=== PATIENT | male | born 1955 | race Caucasian/White ===

== ENCOUNTER 2016-07-07 14:43 | Emergency (ER) | payer OTHER ==
[2016-07-07] MEDS ORDERED: MORPHINE 2 MG/ML 1ML SYRINGE As Ordered ONE (15:42)
[2016-07-07] MEDS ORDERED: ONDANSETRON 4MG/2ML VIAL (J2405) As Ordered ONE (15:48)
[2016-07-07 15:57] LABS: BASO # 0.1 K/mm3 (0.0-0.2); BASO % 0.9 % (0.0-1.0); EOS # 0.3 K/mm3 (0.0-0.50); EOS % 4.1 % (0.0-3.0); LARGE UNSTAINED CELL # 0.1 K/mm3 (0.0-0.4); LARGE UNSTAINED CELL % 1.3 % (0.0-4.0); LYMPH % 26.5 % (24.0-44.0); MEAN CORPUSCULAR HEMOGLOBIN 32.5 pg (27.0-33.0); MEAN CORPUSCULAR HGB CONC 34.6 g/dl (32.0-36.5); MEAN CORPUSCULAR VOLUME 93.8 fl (80.0-96.0); MONO # 0.6 K/mm3 (0.0-0.8); MONO % 7.5 % (0.0-5.0); NEUTROPHILS # 4.4 K/mm3 (1.8-7.7); NEUTROPHILS % 59.8 % (36.0-66.0); PLATELET COUNT, AUTOMATED 170 k/mm3 (150-450); WHITE BLOOD COUNT 7.4 K/mm3 (4.0-10.0)
[2016-07-07 16:18] LABS: ALBUMIN/GLOBULIN RATIO 1.14 (1.00-1.93); ALKALINE PHOSPHATASE 96 U/L (45-117); ALT/SGPT 61 U/L (12-78); ANION GAP 7 MEQ/L (8-16); AST/SGOT 27 U/L (15-37); BILIRUBIN,DIRECT 0.2 MG/DL (0.0-0.2); BILIRUBIN,TOTAL 0.7 MG/DL (0.2-1.0); BLOOD UREA NITROGEN 15 MG/DL (7-18); CALCIUM LEVEL 9.2 MG/DL (8.8-10.2); CARBON DIOXIDE LEVEL 26 MEQ/L (21-32); CHLORIDE LEVEL 108 MEQ/L (98-107); CREATININE FOR GFR 0.79 MG/DL (0.70-1.30); GLOMERULAR FILTRATION RATE > 60.0 (>49); GLUCOSE, FASTING 85 MG/DL (80-110); POTASSIUM SERUM 3.9 MEQ/L (3.5-5.1); SODIUM LEVEL 141 MEQ/L (136-145); TOTAL PROTEIN 7.5 GM/DL (6.4-8.2)
--- NOTE | 2016-07-07 16:26 | REP ---
CT abdomen pelvis without IV or bowel contrast: Comparisons 07/06/2010. The visualized lung peres are unremarkable. There there are multiple cysts in the left hepatic lobe, one in the medial segment measuring 3.5 cm (2.4 cm previously). There is a second bilobed cyst measuring 4.6 cm (previously 2.3 cm). A third in the lateral segment measuring 4.4 cm (previously 2.0 cm). The hepatic parenchyma is otherwise homogeneous and unremarkable. The gallbladder is unremarkable. Pancreas is normal size. There are numerous pancreatic calcifications, as previously, likely sequela of prior pancreatitis. There is no acute pancreatic inflammation. Spleen is normal size and homogeneous. The adrenals are unremarkable. There are bilateral renal cortical cysts, all approximately 1 cm in size with the exception of a large cyst at the lower pole of the left kidney measuring 7.6 cm (7.3 cm previously). No renal collecting system calculi are identified. There are vascular atheromatous calcifications in the right kidney. There are no ureteral calculi. There is no right hydroureter. There is mild left hydroureter, unchanged. 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 This is unchanged. There is an infrarenal abdominal aortic aneurysm measuring 4.1 x 3.4 cm. There is no periaortic or retroperitoneal hematoma. No bowel distension. Mesentery is unremarkable. Pelvis: The appendix has a normal appearance. There is no ascites or adenopathy. There are occasional diverticula in the sigmoid colon. No CT evidence of diverticulitis. Impression: Ureterocele in the bladder on the left. Mild left hydroureter. No left renal ureteral calculi. There is no hydronephrosis or hydroureter on the right. There are no right renal pelvis or ureteral calculi. There are right renal parenchymal calcifications, likely vascular atheroma. There are bilateral renal cortical cysts, largest in the lower pole left kidney. There are pancreatic calcifications, likely sequela of prior pancreatitis. There are hepatic cysts as described. There is an infrarenal abdominal aortic aneurysm measuring 4.1 x 3.4 cm. There is no periaortic or retroperitoneal hematoma. Signed by Justice Blanco MD 07/07/2016 04:18 P
--- NOTE | 2016-07-07 17:16 | REP ---
Clinical: Biliary colic. Technique: Real time ware scale ultrasound examination using curved array transducer. Findings: The gallbladder is normal without gallstones, wall thickening, or pericholecystic fluid. No biliary ductal dilatation is appreciated and the common bile duct measures 4.1 mm diameter. Pancreas demonstrates scattered calcifications consistent with chronic pancreatitis. Liver demonstrates fatty infiltration along with three left lobe cysts measuring 3.6 cm, 4.6 cm, and 3.3 cm maximal diameter each. Right kidney is normal in reniform shape without hydronephrosis and demonstrates few cysts measuring up to approximately 2 cm. Impression: 1. Normal gallbladder and biliary system. 2. Hepatic and renal cysts. 3. Evidence for chronic pancreatitis. Signed by Karlos Mullen MD 07/07/2016 05:08 P
--- NOTE | 2016-07-07 18:04 | EDDOCDS ---
Physician Documentation [facility] Name: Shiraz Clemente Age: 61 yrs Sex: Male : 1955 Arrival Date: 07/07/2016 Time: 14:43 Bed I4 / M4 Private MD: Jb Bhat P. Disposition: 07/07/16 17:37 Discharged to Home/Self Care. Impression: Other abdominal pain - RUQ, RIGHT FLANK PAIN, Abdominal aortic aneurysm, without rupture - INFRARENAL. - Condition is Stable. - Discharge Instructions: Abdominal Aortic Aneurysm, Abdominal Pain, Adult. - Medication Reconciliation, Local Pharmacy Hours form. - Follow up: Emergency Department; When: As needed; Reason: Worsening of conditions. Follow up: Jb Bhat; When: 2 - 3 days; Reason: Wound/Symptom Recheck, Recheck today's complaints, Continuance of care. - Problem is new. - Symptoms have improved. Historical: - Allergies: No known drug Allergies; - Home Meds: 1. Vitamin D Oral 2000 units daily (Last dose: 07/07/2016 06:00) 2. aspirin 81 mg Oral tab 1 tab once daily (Last dose: 07/07/2016 06:00) 3. amlodipine 10 mg Oral tab 1 tab nightly (Last dose: 07/06/2016) 4. atenolol 50 mg Oral tab 1 tab once daily (Last dose: 07/07/2016 06:00) 5. atorvastatin 40 mg oral tab 1 tab once daily (Last dose: 07/07/2016 06:00) 6. metformin 500 mg Oral tr24 1 tab twice a day (Last dose: 07/06/2016) 7. lisinopril 10 mg Oral tab 1 tab once daily (Last dose: 07/07/2016 06:00) - PMHx: Hypercholesterolemia; Hypertension; Diabetes - NIDDM: controlled; - PSHx: left knee surgery for ruptured patellar tendon; - Social history: Smoking status: Patient uses tobacco products, heavy tobacco smoker. No barriers to communication noted, The patient speaks fluent Italian. - : The pt / caregiver states he / she is not on anticoagulants. Home medication list is obtained from the patient. - Exposure Risk Screening:: None identified. Vital Signs: 07/07 14:45 BP 158 / 85; Pulse 61; Resp 18 S; Temp 97.9(O); Pulse Ox 99% on R/A; Weight 91.17 kg / gr2 201 lbs (R); Height 5 ft. 10 in. (177.80 cm) (R); Pain 7/10; 16:26 BP 129 / 69; Pulse 54; Resp 18; Pulse Ox 95% on R/A; Pain 4/10; jjr 17:38 BP 127 / 76; Pulse 54; Resp 18; Temp 98.0; Pulse Ox 95% ; Pain 8/10; jam1 14:45 Body Mass Index 28.84 (91.17 kg, 177.80 cm) gr2 MDM: 15:08 UA Ordered. EDMS 15:20 IV Saline Lock ordered. dt4 15:20 NS 0.9% 500 ml IV at bolus once ordered. dt4 15:20 morphine 2 mg IVP once ordered. dt4 15:21 CT ABD & PELVIS: No Contrast Ordered. EDMS 15:21 CBC with Diff Ordered. EDMS 15:21 Basic Metabolic Profile Ordered. EDMS 15:21 CRP Ordered. EDMS 15:47 LIPASE Ordered. EDMS 15:47 LIVER PROFILE Ordered. EDMS 15:48 Ondansetron 4 mg IVP once ordered. dt4 15:51 Financial registration complete. [email or web address] 16:00 [facility] Payment Agreement was scanned into [employer] and attached to record. [email or web address] 16:28 US Abd Limited Ordered. EDMS Administered Medications: 15:53 Drug: NS 0.9% 500 ml [sodium chloride 0.9 % intravenous solution] Route: IV; Rate: jjr bolus; Site: right antecubital; 16:46 Follow up: IV Status: Completed infusion; IV Intake: 500ml jjr 15:53 Drug: morphine 2 mg [morphine 2 mg/mL intravenous cartridge (1 mL)] Route: IVP; Site: jjr right antecubital; 16:26 Follow up: BP 129 / 69; Pulse 54 bpm; Resp 18 bpm; Pulse Ox 95% RA; Pain 4/10 Adult jjr 15:53 Drug: Ondansetron 4 mg [ondansetron HCl 2 mg/mL intravenous solution (2 mL)] Route: jjr IVP; Site: right antecubital; Signatures: Dispatcher [employer] Infuse EDMS Minna Mukherjee RN RN Patricia Corona RN Mallika Garcia, PACrys PACrys dt4 Lois Paul, Reg Reg [email or web address] The chart was reviewed and I authenticate all verbal orders and agree with the evaluation and treatment provided.Corrections: (The following items were deleted from the chart) 15:45 15:21 LIVER PROFILE+LAB ordered. EDMS EDMS 15:45 15:21 LIPASE+LAB ordered. EDMS EDMS Attachments: 16:00 [facility] Payment Agreement [email or web address] MTDD
--- NOTE | 2016-07-07 18:04 | EDDOCDS ---
Nurse's Notes [facility] Name: Shiraz Clemente Age: 61 yrs Sex: Male : 1955 Arrival Date: 07/07/2016 Time: 14:43 Bed I4 / M4 Private MD: Jb Bhat P. Diagnosis: Other abdominal pain-RUQ, RIGHT FLANK PAIN;Abdominal aortic aneurysm, without rupture-INFRARENAL Presentation: 07/07 14:55 Presenting complaint: Patient states: right flank pain radiating to abdomen since [facility] yesterday, Sent from Dr Bhat's office. Acute neurological deficits are not present. Mechanism of Injury: No Mechanism of Injury. Adult Sepsis Screening: The patient does not have new or worsening altered mentation. Patient's respiratory rate is less than 22. Systolic blood pressure is greater than 100. Patient has a qSOFA score of 0- Negative Sepsis Screen. Suicide/Homicide risk assessment- the patient denies having any suicidal and/or homicidal ideations and does not present with any other emotional, behavioral or mental health complaints. Status: Patient is not a civil service worker or dependent. Transition of care: patient was received from a primary care office; Dr Bhta's office. 14:55 Acuity: DELFIN Level 3 [facility] 14:55 Method Of Arrival: Walkin/Carried/Asstd [facility] Triage Assessment: 15:01 General: Appears in no apparent distress, well nourished, well groomed, Behavior is j appropriate for age, pleasant. Pain: Location: right flank Pain currently is 5 out of 10 on a pain scale. Pain radiates to right lower quadrant. Pt Declines HIV testing. Neurological: Level of Consciousness is awake, alert, Oriented to person, place, time. Respiratory: Airway is patent Respiratory effort is even, unlabored, Respiratory pattern is regular, symmetrical. GI: Denies nausea, vomiting. : Reports pain in right flank(s) Pain is 5 out of 10 on a pain scale. Derm: Skin is pink, warm & dry. Musculoskeletal: Reports pain in right flank Pain is 5 out of 10 on a pain scale. Historical: - Allergies: No known drug Allergies; - Home Meds: 1. Vitamin D Oral 2000 units daily (Last dose: 07/07/2016 06:00) 2. aspirin 81 mg Oral tab 1 tab once daily (Last dose: 07/07/2016 06:00) 3. amlodipine 10 mg Oral tab 1 tab nightly (Last dose: 07/06/2016) 4. atenolol 50 mg Oral tab 1 tab once daily (Last dose: 07/07/2016 06:00) 5. atorvastatin 40 mg oral tab 1 tab once daily (Last dose: 07/07/2016 06:00) 6. metformin 500 mg Oral tr24 1 tab twice a day (Last dose: 07/06/2016) 7. lisinopril 10 mg Oral tab 1 tab once daily (Last dose: 07/07/2016 06:00) - PMHx: Hypercholesterolemia; Hypertension; Diabetes - NIDDM: controlled; - PSHx: left knee surgery for ruptured patellar tendon; - Social history: Smoking status: Patient uses tobacco products, heavy tobacco smoker. No barriers to communication noted, The patient speaks fluent [place]. - : The pt / caregiver states he / she is not on anticoagulants. Home medication list is obtained from the patient. - Exposure Risk Screening:: None identified. Screenin:35 Screening information is obtained from the patient. Primary language is [place]. Fall jam1 risk: No risks identified. Assistance ADL's: requires no assistance with activities of daily living. Abuse/DV Screen: The patient / caregiver reports he/she is: not in a situation that causes fear, pain or injury. Nutritional screening: No deficits noted. Exposure Risk Screening: None identified. Advance Directives: Currently, there is a health care proxy, lana block friend. There is no active DNR order. There is no living will. There is an active Power of Continuous Improvement Consultant, geovanna block friend. Advance directive information has not previously been placed in an [facility] medical record. Further advance directive information is declined. home support is adequate. Assessment: 15:54 General: Appears in no apparent distress, well nourished, well groomed, Behavior is jjr appropriate for age. Pain: Location: posterior aspect of right lateral abdomen Pain radiates to right low back, right lower quadrant and groin Pain began 1 day ago Aggravated by lying supine and activity. Neurological: No deficits noted. Respiratory: No deficits noted. GI: Abdomen is non- distended Bowel sounds present X 4 quads. Abd is soft X 4 quads Abd is tender to palpation in posterior aspect of right lateral abdomen and right lower quadrant. : Denies pain with urination urinary frequency, urgency. Derm: No deficits noted. 16:27 General: Appears in no apparent distress, reports less pain with movement than jjr experienced earlier, pain remains the worst to right lateral abdomen. 18:02 General: Appears in no apparent distress, continues to report pain to right lateral jjr abdomen radiating to right low back and RLQ. Vital Signs: 14:45 BP 158 / 85; Pulse 61; Resp 18 S; Temp 97.9(O); Pulse Ox 99% on R/A; Weight 91.17 kg gr2 (R); Height 5 ft. 10 in. (177.80 cm) (R); Pain 7/10; 16:26 BP 129 / 69; Pulse 54; Resp 18; Pulse Ox 95% on R/A; Pain 4/10; jjr 17:38 BP 127 / 76; Pulse 54; Resp 18; Temp 98.0; Pulse Ox 95% ; Pain 8/10; jam1 14:45 Body Mass Index 28.84 (91.17 kg, 177.80 cm) gr2 Vitals: 14:45 Log In Time: July 07, 2016 at 14:45. gr2 ED Course: 14:45 Patient visited by Bg Feliciano. gr2 14:45 Jb Bhat is Private Physician. gr2 14:45 Patient moved to Waiting gr2 14:46 Patient visited by Bg Feliciano. gr2 14:46 Patient moved to Pre RCE gr2 14:57 Triage Initiated kp 15:03 Patient moved to Triage 3 [facility] 15:04 Mallika Chaudhari PA-C [facility]. dt4 15:04 Carroll Smith MD is Attending Physician. dt4 15:05 Patient visited by Mallika Chaudhari PA-C. dt4 15:21 Patient moved to I4 / M4 jr 15:35 Pt greeted and oriented to ED. Patient advised of names of staff involved in care, jam1 location of call rivera, wait times and NPO status. Patient has correct armband on for positive identification. Placed in gown. Bed in low position. Call light in reach. Side rails up X 1. Adult w/ patient. Door closed. 15:55 Patient visited by Patricia Feliciano RN. jjr 15:55 The patient / caregiver is instructed regarding the plan of care and ED course. jjr 15:55 Inserted saline lock: 20 gauge in right antecubital area and blood collected. by Edel stephen RN. 16:00 [facility] Payment Agreement was scanned into [employer] and attached to record. ks16 16:28 Patient visited by Patricia Feliciano RN. jjr 16:34 Patient visited by Mallika Chaudhari PA-C. dt4 16:35 Patient moved to Ultrasound hgl 16:47 CT ABD & PELVIS: No Contrast Returned. EDMS 16:52 Patient moved to I4 / M4 hgl 17:32 Patient visited by Alma Tyler RN. mk4 17:35 Jb Bhat is Referral Physician. dt4 17:45 US Abd Limited Returned. EDMS 18:02 Discontinued lock intact, bleeding controlled, pressure dressing applied, No jjr redness/swelling at site. No procedures done that require assistance. Administered Medications: 15:53 Drug: NS 0.9% 500 ml [sodium chloride 0.9 % intravenous solution] Route: IV; Rate: jjr bolus; Site: right antecubital; 16:46 Follow up: IV Status: Completed infusion; IV Intake: 500ml jjr 15:53 Drug: morphine 2 mg [morphine 2 mg/mL intravenous cartridge (1 mL)] Route: IVP; Site: jjr right antecubital; 16:26 Follow up: BP 129 / 69; Pulse 54 bpm; Resp 18 bpm; Pulse Ox 95% RA; Pain 4/10 Adult jjr 15:53 Drug: Ondansetron 4 mg [ondansetron HCl 2 mg/mL intravenous solution (2 mL)] Route: jjr IVP; Site: right antecubital; Intake: 16:46 IV: 500.00ml; Total: 500.00ml. jjr Order Results: Lab Order: UA; SPEC'M 07/07/16 15:12 Test: APPEARANCE, URINE; Value: CLEAR; Range: CLEAR; Status: F Test: COLOR, URINE; Value: STRAW; Range: YELLOW; Status: F Test: PH,URINE; Value: 5.0; Range: 5.0-9.0; Units: UNITS; Status: F Test: SPECIFIC GRAVITY URINE AUTO; Value: 1.006; Range: 1.002-1.035; Status: F Test: PROTEIN, URINE AUTO; Value: NEGATIVE; Range: NEGATIVE; Units: mg/dL; Status: F Test: GLUCOSE, URINE (UA) AUTO; Value: NEGATIVE; Range: NEGATIVE; Units: mg/dL; Status: F Test: KETONE, URINE AUTO; Value: NEGATIVE; Range: NEGATIVE; Units: mg/dL; Status: F Test: UROBILINOGEN, URINE AUTO; Value: 0.2; Range: 0.0-2.0; Units: mg/dL; Status: F Test: BILIRUBIN, URINE AUTO; Value: NEGATIVE; Range: NEGATIVE; Status: F Test: NITRITE, URINE AUTO; Value: NEGATIVE; Range: NEGATIVE; Status: F Test: LEUKOCYTE ESTERASE, URINE AUTO; Value: NEGATIVE; Range: NEGATIVE; Status: F Test: BLOOD, URINE BLOOD; Value: NEGATIVE; Range: NEGATIVE; Status: F Test: WBC, URINE AUTO; Value: 0; Range: 0-3; Units: /HPF; Status: F Test: RBC, URINE AUTO; Value: 1; Range: 0-3; Units: /HPF; Status: F Test: BACTERIA, URINE AUTO; Value: NEGATIVE; Range: NEGATIVE; Status: F Test: SQUAMOUS EPITHELIAL CELL UR AU; Value: 0; Range: 0-6; Units: /HPF; Status: F Test: MUCUS, URINE; Value: SMALL; Range: NEGATIVE; Status: F Test: HYALINE CAST, URINE AUTO; Value: 0; Range: 0-1; Units: /LPF; Status: F Lab Order: CBC with Diff; SPEC'M 07/07/16 15:46 Test: WHITE BLOOD COUNT; Value: 7.4; Range: 4.0-10.0; Units: K/mm3; Status: F Test: RED BLOOD COUNT; Value: 5.47; Range: 4.30-6.10; Units: M/mm3; Status: F Test: HEMOGLOBIN; Value: 17.8; Range: 14.0-18.0; Units: g/dl; Status: F Test: HEMATOCRIT; Value: 51.3; Range: 42.0-52.0; Units: %; Status: F Test: MEAN CORPUSCULAR VOLUME; Value: 93.8; Range: 80.0-96.0; Units: fl; Status: F Test: MEAN CORPUSCULAR HEMOGLOBIN; Value: 32.5; Range: 27.0-33.0; Units: pg; Status: F Test: MEAN CORPUSCULAR HGB CONC; Value: 34.6; Range: 32.0-36.5; Units: g/dl; Status: F Test: RED CELL DISTRIBUTION WIDTH; Value: 12.0; Range: 11.5-14.5; Units: %; Status: F Test: PLATELET COUNT, AUTOMATED; Value: 170; Range: 150-450; Units: k/mm3; Status: F Test: NEUTROPHILS %; Value: 59.8; Range: 36.0-66.0; Units: %; Status: F Test: LYMPH %; Value: 26.5; Range: 24.0-44.0; Units: %; Status: F Test: MONO %; Value: 7.5; Range: 0.0-5.0; Abnormal: Above high normal; Units: %; Status: F Test: EOS %; Value: 4.1; Range: 0.0-3.0; Abnormal: Above high normal; Units: %; Status: F Test: BASO %; Value: 0.9; Range: 0.0-1.0; Units: %; Status: F Test: LARGE UNSTAINED CELL %; Value: 1.3; Range: 0.0-4.0; Units: %; Status: F Test: NEUTROPHILS #; Value: 4.4; Range: 1.8-7.7; Units: K/mm3; Status: F Test: LYMPH #; Value: 2.0; Range: 1.5-4.5; Units: K/mm3; Status: F Test: MONO #; Value: 0.6; Range: 0.0-0.8; Units: K/mm3; Status: F Test: EOS #; Value: 0.3; Range: 0.0-0.50; Units: K/mm3; Status: F Test: BASO #; Value: 0.1; Range: 0.0-0.2; Units: K/mm3; Status: F Test: LARGE UNSTAINED CELL #; Value: 0.1; Range: 0.0-0.4; Units: K/mm3; Status: F Lab Order: Basic Metabolic Profile; [facility] 07/07/16 15:46 Test: GLUCOSE, FASTING; Value: 85; Range: 80-110; Units: MG/DL; Status: F Test: BLOOD UREA NITROGEN; Value: 15; Range: 7-18; Units: MG/DL; Status: F Test: CREATININE FOR GFR; Value: 0.79; Range: 0.70-1.30; Units: MG/DL; Status: F Test: GLOMERULAR FILTRATION RATE; Value: > 60.0; Range: >49; Status: F Test: SODIUM LEVEL; Value: 141; Range: 136-145; Units: MEQ/L; Status: F Test: POTASSIUM SERUM; Value: 3.9; Range: 3.5-5.1; Units: MEQ/L; Status: F Test: CHLORIDE LEVEL; Value: 108; Range: 98-107; Abnormal: Above high normal; Units: MEQ/L; Status: F Test: CARBON DIOXIDE LEVEL; Value: 26; Range: 21-32; Units: MEQ/L; Status: F Test: ANION GAP; Value: 7; Range: 8-16; Abnormal: Below low normal; Units: MEQ/L; Status: F Test: CALCIUM LEVEL; Value: 9.2; Range: 8.8-10.2; Units: MG/DL; Status: F Test Note: ; Units are mL/min/1.73 m2 Chronic Kidney Disease Staging per NKF: Stage I & II GFR >=60 Normal to Mildly Decreased Stage III GFR 30-59 Moderately Decreased Stage IV GFR 15-29 Severely Decreased Stage V GFR <15 Very Little GFR Left ESRD GFR <15 on [employer] SUPERVISOR Lab Order: CRP; [facility] 07/07/16 15:46 Test: C REACTIVE PROTEIN QUANTITATIV; Value: 0.42; Range: 0.00-0.30; Abnormal: Above high normal; Units: MG/DL; Status: F Lab Order: LIPASE; [facility] 07/07/16 15:46 Test: LIPASE; Value: 283; Range: 73-393; Units: U/L; Status: F Lab Order: LIVER PROFILE; [facility] 07/07/16 15:46 Test: AST/SGOT; Value: 27; Range: 15-37; Units: U/L; Status: F Test: ALT/SGPT; Value: 61; Range: 12-78; Units: U/L; Status: F Test: ALKALINE PHOSPHATASE; Value: 96; Range: 45-117; Units: U/L; Status: F Test: BILIRUBIN,TOTAL; Value: 0.7; Range: 0.2-1.0; Units: MG/DL; Status: F Test: BILIRUBIN,DIRECT; Value: 0.2; Range: 0.0-0.2; Units: MG/DL; Status: F Test: TOTAL PROTEIN; Value: 7.5; Range: 6.4-8.2; Units: GM/DL; Status: F Test: ALBUMIN; Value: 4.0; Range: 3.2-5.2; Units: GM/DL; Status: F Test: ALBUMIN/GLOBULIN RATIO; Value: 1.14; Range: 1.00-1.93; Status: F Radiology Order: CT ABD & PELVIS: No Contrast Test: CT ABD & PELVIS: No Contrast REASON FOR EXAMINATION: RIGHT FLANK PAIN; CT abdomen pelvis without IV or bowel contrast:; ; Comparisons 07/06/2010.; ; The visualized lung peres are unremarkable.; ; There there are multiple cysts in the left hepatic lobe, one in the medial; segment measuring 3.5 cm (2.4 cm previously). There is a second bilobed cyst; measuring 4.6 cm (previously 2.3 cm). A third in the lateral segment measuring; 4.4 cm (previously 2.0 cm).; ; The hepatic parenchyma is otherwise homogeneous and unremarkable.; ; The gallbladder is unremarkable.; ; Pancreas is normal size. There are numerous pancreatic calcifications, as; previously, likely sequela of prior pancreatitis. There is no acute pancreatic; inflammation.; ; Spleen is normal size and homogeneous.; ; The adrenals are unremarkable.; ; There are bilateral renal cortical cysts, all approximately 1 cm in size with the; exception of a large cyst at the lower pole of the left kidney measuring 7.6 cm; (7.3 cm previously).; ; No renal collecting system calculi are identified. There are vascular; atheromatous calcifications in the right kidney.; ; There are no ureteral calculi.; ; There is no right hydroureter. There is mild left hydroureter, unchanged. 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 This is unchanged.; ; There is an infrarenal abdominal aortic aneurysm measuring 4.1 x 3.4 cm. There; is no periaortic or retroperitoneal hematoma.; ; No bowel distension. Mesentery is unremarkable.; ; ; ; Pelvis:; ; The appendix has a normal appearance. There is no ascites or adenopathy. There; are occasional diverticula in the sigmoid colon. No CT evidence of; diverticulitis.; ; Impression:; ; Ureterocele in the bladder on the left. Mild left hydroureter. No left renal; ureteral calculi.; ; There is no hydronephrosis or hydroureter on the right. There are no right renal; pelvis or ureteral calculi. There are right renal parenchymal calcifications,; likely vascular atheroma.; ; There are bilateral renal cortical cysts, largest in the lower pole left kidney.; ; There are pancreatic calcifications, likely sequela of prior pancreatitis.; ; There are hepatic cysts as described.; ; There is an infrarenal abdominal aortic aneurysm measuring 4.1 x 3.4 cm. There; is no periaortic or retroperitoneal hematoma.; ; ; Signed by; Justice Blanco MD 07/07/2016 04:18 P; Radiology Order: US Abd Limited Test: US Abd Limited REASON FOR EXAMINATION: Biliary Colic; Clinical: Biliary colic.; ; Technique: Real time ware scale ultrasound examination using curved array; transducer.; ; Findings:; The gallbladder is normal without gallstones, wall thickening, or pericholecystic; fluid. No biliary ductal dilatation is appreciated and the common bile duct; measures 4.1 mm diameter. Pancreas demonstrates scattered calcifications; consistent with chronic pancreatitis. Liver demonstrates fatty infiltration; along with three left lobe cysts measuring 3.6 cm, 4.6 cm, and 3.3 cm maximal; diameter each. Right kidney is normal in reniform shape without hydronephrosis; and demonstrates few cysts measuring up to approximately 2 cm.; ; Impression:; 1. Normal gallbladder and biliary system.; 2. Hepatic and renal cysts.; 3. Evidence for chronic pancreatitis.; ; ; Signed by; Karlos Mullen MD 07/07/2016 05:08 P; Outcome: 17:37 Discharge ordered by Provider. dt4 18:03 Discharge Assessment: patient administered narcotics - yes. Pt provided with safe jjr discharge. The following High Risk Discharge criteria are identified: None. Discharged to home ambulatory, with significant other. Condition: stable. Discharge instructions given to patient, Instructed on discharge instructions, follow up and referral plans. Demonstrated understanding of instructions. CT Study completed. Ultrasound Study completed. Property sent home with patient. 18:03 Patient left the ED. zafar Signatures: Dispatcher [employer] EDMS Minna Mukherjee, RN RN Eliana Cleaning PCA JOB ORDER CLERK jam1 Patricia Feliciano RN ANJELICA stephen Ly, Yeison l Bg Feliciano gr2 Alma Tyler RN RN mk4 Mallika Chaudhari, JHONNY PACrys dt4 Lois Paul, Reg Reg ks16 MTDD
--- NOTE | 2016-07-09 19:04 | EDDOCDS ---
Physician Documentation [facility] Name: Shiraz Clemente Age: 61 yrs Sex: Male : 1955 Arrival Date: 07/07/2016 Time: 14:43 Bed I4 / M4 Private MD: Jb Bhat P. Disposition: 07/07/16 17:37 Discharged to Home/Self Care. Impression: Other abdominal pain - RUQ, RIGHT FLANK PAIN, Abdominal aortic aneurysm, without rupture - INFRARENAL. - Condition is Stable. - Discharge Instructions: Abdominal Aortic Aneurysm, Abdominal Pain, Adult. - Medication Reconciliation, Local Pharmacy Hours form. - Follow up: Emergency Department; When: As needed; Reason: Worsening of conditions. Follow up: Jb Bhat; When: 2 - 3 days; Reason: Wound/Symptom Recheck, Recheck today's complaints, Continuance of care. - Problem is new. - Symptoms have improved. Historical: - Allergies: No known drug Allergies; - Home Meds: 1. Vitamin D Oral 2000 units daily (Last dose: 07/07/2016 06:00) 2. aspirin 81 mg Oral tab 1 tab once daily (Last dose: 07/07/2016 06:00) 3. amlodipine 10 mg Oral tab 1 tab nightly (Last dose: 07/06/2016) 4. atenolol 50 mg Oral tab 1 tab once daily (Last dose: 07/07/2016 06:00) 5. atorvastatin 40 mg oral tab 1 tab once daily (Last dose: 07/07/2016 06:00) 6. metformin 500 mg Oral tr24 1 tab twice a day (Last dose: 07/06/2016) 7. lisinopril 10 mg Oral tab 1 tab once daily (Last dose: 07/07/2016 06:00) - PMHx: Hypercholesterolemia; Hypertension; Diabetes - NIDDM: controlled; - PSHx: left knee surgery for ruptured patellar tendon; - Social history: Smoking status: Patient uses tobacco products, heavy tobacco smoker. No barriers to communication noted, The patient speaks fluent Luxembourgish. - : The pt / caregiver states he / she is not on anticoagulants. Home medication list is obtained from the patient. - Exposure Risk Screening:: None identified. Vital Signs: 07/07 14:45 BP 158 / 85; Pulse 61; Resp 18 S; Temp 97.9(O); Pulse Ox 99% on R/A; Weight 91.17 kg / gr2 201 lbs (R); Height 5 ft. 10 in. (177.80 cm) (R); Pain 7/10; 16:26 BP 129 / 69; Pulse 54; Resp 18; Pulse Ox 95% on R/A; Pain 4/10; jjr 17:38 BP 127 / 76; Pulse 54; Resp 18; Temp 98.0; Pulse Ox 95% ; Pain 8/10; jam1 14:45 Body Mass Index 28.84 (91.17 kg, 177.80 cm) gr2 MDM: 15:08 UA Ordered. EDMS 15:20 IV Saline Lock ordered. dt4 15:20 NS 0.9% 500 ml IV at bolus once ordered. dt4 15:20 morphine 2 mg IVP once ordered. dt4 15:21 CT ABD & PELVIS: No Contrast Ordered. EDMS 15:21 CBC with Diff Ordered. EDMS 15:21 Basic Metabolic Profile Ordered. EDMS 15:21 CRP Ordered. EDMS 15:47 LIPASE Ordered. EDMS 15:47 LIVER PROFILE Ordered. EDMS 15:48 Ondansetron 4 mg IVP once ordered. dt4 15:51 Financial registration complete. [email or web address] 16:00 [facility] Payment Agreement was scanned into [employer] and attached to record. [email or web address] 16:28 [place] Abd Limited Ordered. EDMS 07/08 18:52 T-Sheet-- Draft Copy was scanned into [employer] and attached to record. klr Administered Medications: 07/07 15:53 Drug: NS 0.9% 500 ml [sodium chloride 0.9 % intravenous solution] Route: IV; Rate: jjr bolus; Site: right antecubital; 16:46 Follow up: IV Status: Completed infusion; IV Intake: 500ml jjr 15:53 Drug: morphine 2 mg [morphine 2 mg/mL intravenous cartridge (1 mL)] Route: IVP; Site: jjr right antecubital; 16:26 Follow up: BP 129 / 69; Pulse 54 bpm; Resp 18 bpm; Pulse Ox 95% RA; Pain 4/10 Adult jjr 15:53 Drug: Ondansetron 4 mg [ondansetron HCl 2 mg/mL intravenous solution (2 mL)] Route: jjr IVP; Site: right antecubital; Signatures: Dispatcher [employer] EDMinna Pena RN RN Patricia Corona RN RN Mallika Tinsley PA-C PA-C dt4 Lois Paul, Reg Reg ks16 Julita Lewis The chart was reviewed and I authenticate all verbal orders and agree with the evaluation and treatment provided.Corrections: (The following items were deleted from the chart) 15:45 15:21 LIVER PROFILE+LAB ordered. EDMS EDMS 15:45 15:21 LIPASE+LAB ordered. EDMS EDMS Attachments: 16:00 [facility] Payment Agreement [email or web address] 07/08 18:52 T-Sheet-- Draft Copy wisam Chart Complete MTDD
--- NOTE | 2016-07-09 19:04 | EDDOCDS ---
Physician Documentation [facility] Name: Shiraz Clemente Age: 61 yrs Sex: Male : 1955 Arrival Date: 07/07/2016 Time: 14:43 Bed I4 / M4 Private MD: Jb Bhat P. Disposition: 07/07/16 17:37 Discharged to Home/Self Care. Impression: Other abdominal pain - RUQ, RIGHT FLANK PAIN, Abdominal aortic aneurysm, without rupture - INFRARENAL. - Condition is Stable. - Discharge Instructions: Abdominal Aortic Aneurysm, Abdominal Pain, Adult. - Medication Reconciliation, Local Pharmacy Hours form. - Follow up: Emergency Department; When: As needed; Reason: Worsening of conditions. Follow up: Jb Bhat; When: 2 - 3 days; Reason: Wound/Symptom Recheck, Recheck today's complaints, Continuance of care. - Problem is new. - Symptoms have improved. Historical: - Allergies: No known drug Allergies; - Home Meds: 1. Vitamin D Oral 2000 units daily (Last dose: 07/07/2016 06:00) 2. aspirin 81 mg Oral tab 1 tab once daily (Last dose: 07/07/2016 06:00) 3. amlodipine 10 mg Oral tab 1 tab nightly (Last dose: 07/06/2016) 4. atenolol 50 mg Oral tab 1 tab once daily (Last dose: 07/07/2016 06:00) 5. atorvastatin 40 mg oral tab 1 tab once daily (Last dose: 07/07/2016 06:00) 6. metformin 500 mg Oral tr24 1 tab twice a day (Last dose: 07/06/2016) 7. lisinopril 10 mg Oral tab 1 tab once daily (Last dose: 07/07/2016 06:00) - PMHx: Hypercholesterolemia; Hypertension; Diabetes - NIDDM: controlled; - PSHx: left knee surgery for ruptured patellar tendon; - Social history: Smoking status: Patient uses tobacco products, heavy tobacco smoker. No barriers to communication noted, The patient speaks fluent Irish. - : The pt / caregiver states he / she is not on anticoagulants. Home medication list is obtained from the patient. - Exposure Risk Screening:: None identified. Vital Signs: 07/07 14:45 BP 158 / 85; Pulse 61; Resp 18 S; Temp 97.9(O); Pulse Ox 99% on R/A; Weight 91.17 kg / gr2 201 lbs (R); Height 5 ft. 10 in. (177.80 cm) (R); Pain 7/10; 16:26 BP 129 / 69; Pulse 54; Resp 18; Pulse Ox 95% on R/A; Pain 4/10; jjr 17:38 BP 127 / 76; Pulse 54; Resp 18; Temp 98.0; Pulse Ox 95% ; Pain 8/10; jam1 14:45 Body Mass Index 28.84 (91.17 kg, 177.80 cm) gr2 MDM: 15:08 UA Ordered. EDMS 15:20 IV Saline Lock ordered. dt4 15:20 NS 0.9% 500 ml IV at bolus once ordered. dt4 15:20 morphine 2 mg IVP once ordered. dt4 15:21 CT ABD & PELVIS: No Contrast Ordered. EDMS 15:21 CBC with Diff Ordered. EDMS 15:21 Basic Metabolic Profile Ordered. EDMS 15:21 CRP Ordered. EDMS 15:47 LIPASE Ordered. EDMS 15:47 LIVER PROFILE Ordered. EDMS 15:48 Ondansetron 4 mg IVP once ordered. dt4 15:51 Financial registration complete. [email or web address] 16:00 [facility] Payment Agreement was scanned into [employer] and attached to record. [email or web address] 16:28 [place] Abd Limited Ordered. EDMS 07/08 18:52 T-Sheet-- Draft Copy was scanned into [employer] and attached to record. klr Administered Medications: 07/07 15:53 Drug: NS 0.9% 500 ml [sodium chloride 0.9 % intravenous solution] Route: IV; Rate: jjr bolus; Site: right antecubital; 16:46 Follow up: IV Status: Completed infusion; IV Intake: 500ml jjr 15:53 Drug: morphine 2 mg [morphine 2 mg/mL intravenous cartridge (1 mL)] Route: IVP; Site: jjr right antecubital; 16:26 Follow up: BP 129 / 69; Pulse 54 bpm; Resp 18 bpm; Pulse Ox 95% RA; Pain 4/10 Adult jjr 15:53 Drug: Ondansetron 4 mg [ondansetron HCl 2 mg/mL intravenous solution (2 mL)] Route: jjr IVP; Site: right antecubital; Signatures: Dispatcher [employer] EDMinna Pena RN RN Patricia Corona RN RN Mallika Tinsley PA-C PA-C dt4 Lois Paul, Reg Reg ks16 Julita Lewis The chart was reviewed and I authenticate all verbal orders and agree with the evaluation and treatment provided.Corrections: (The following items were deleted from the chart) 15:45 15:21 LIVER PROFILE+LAB ordered. EDMS EDMS 15:45 15:21 LIPASE+LAB ordered. EDMS EDMS Attachments: 16:00 [facility] Payment Agreement [email or web address] 07/08 18:52 T-Sheet-- Draft Copy wisam Chart Complete MTDD
--- NOTE | 2016-07-09 19:05 | EDDOCDS ---
Nurse's Notes [facility] Name: Shiraz Clemente Age: 61 yrs Sex: Male : 1955 Arrival Date: 07/07/2016 Time: 14:43 Bed I4 / M4 Private MD: Jb Bhat P. Diagnosis: Other abdominal pain-RUQ, RIGHT FLANK PAIN;Abdominal aortic aneurysm, without rupture-INFRARENAL Presentation: 07/07 14:55 Presenting complaint: Patient states: right flank pain radiating to [facility] Sent from Dr Bhat's office. Acute neurological deficits are not present. Mechanism of Injury: No Mechanism of Injury. Adult Sepsis Screening: The patient does not have new or worsening altered mentation. Patient's respiratory rate is less than 22. Systolic blood pressure is greater than 100. Patient has a qSOFA score of 0- Negative Sepsis Screen. Suicide/Homicide risk assessment- the patient denies having any suicidal and/or homicidal ideations and does not present with any other emotional, behavioral or mental health complaints. Status: Patient is not a supervisor special services or dependent. Transition of care: patient was received from a primary care office; Dr Bhat's office. 14:55 Acuity: [facility] 14:55 Method Of Arrival: Walkin/Carried[facility] Triage Assessment: 15:01 General: Appears in no apparent distress, well nourished, well groomed, Behavior is j appropriate for age, pleasant. Pain: Location: right flank Pain currently is 5 out of 10 on a pain scale. Pain radiates to right lower quadrant. Pt Declines HIV testing. Neurological: Level of Consciousness is awake, alert, Oriented to person, place, time. Respiratory: Airway is patent Respiratory effort is even, unlabored, Respiratory pattern is regular, symmetrical. GI: Denies nausea, vomiting. : Reports pain in right flank(s) Pain is 5 out of 10 on a pain scale. Derm: Skin is pink, warm & dry. Musculoskeletal: Reports pain in right flank Pain is 5 out of 10 on a pain scale. Historical: - Allergies: No known drug Allergies; - Home Meds: 1. Vitamin D Oral 2000 units daily (Last dose: 07/07/2016 06:00) 2. aspirin 81 mg Oral tab 1 tab once daily (Last dose: 07/07/2016 06:00) 3. amlodipine 10 mg Oral tab 1 tab nightly (Last dose: 07/06/2016) 4. atenolol 50 mg Oral tab 1 tab once daily (Last dose: 07/07/2016 06:00) 5. atorvastatin 40 mg oral tab 1 tab once daily (Last dose: 07/07/2016 06:00) 6. metformin 500 mg Oral tr24 1 tab twice a day (Last dose: 07/06/2016) 7. lisinopril 10 mg Oral tab 1 tab once daily (Last dose: 07/07/2016 06:00) - PMHx: Hypercholesterolemia; Hypertension; Diabetes - NIDDM: controlled; - PSHx: left knee surgery for ruptured patellar tendon; - Social history: Smoking status: Patient uses tobacco products, heavy tobacco smoker. No barriers to communication noted, The patient speaks fluent Mongolian. - : The pt / caregiver states he / she is not on anticoagulants. Home medication list is obtained from the patient. - Exposure Risk Screening:: None identified. Screenin:35 Screening information is obtained from the patient. Primary language is Mongolian. Fall jam1 risk: No risks identified. Assistance ADL's: requires no assistance with activities of daily living. Abuse/DV Screen: The patient / caregiver reports he/she is: not in a situation that causes fear, pain or injury. Nutritional screening: No deficits noted. Exposure Risk Screening: None identified. Advance Directives: Currently, there is a health care proxy, lana block friend. There is no active DNR order. There is no living will. There is an active Power of Oil Filters Inspector, geovanna block friend. Advance directive information has not previously been placed in an [facility] medical record. Further advance directive information is declined. home support is adequate. Assessment: 15:54 General: Appears in no apparent distress, well nourished, well groomed, Behavior is jjr appropriate for age. Pain: Location: posterior aspect of right lateral abdomen Pain radiates to right low back, right lower quadrant and groin Pain began 1 day ago Aggravated by lying supine and activity. Neurological: No deficits noted. Respiratory: No deficits noted. GI: Abdomen is non- distended Bowel sounds present X 4 quads. Abd is soft X 4 quads Abd is tender to palpation in posterior aspect of right lateral abdomen and right lower quadrant. : Denies pain with urination urinary frequency, urgency. Derm: No deficits noted. 16:27 General: Appears in no apparent distress, reports less pain with movement than jjr experienced earlier, pain remains the worst to right lateral abdomen. 18:02 General: Appears in no apparent distress, continues to report pain to right lateral jjr abdomen radiating to right low back and RLQ. Vital Signs: 14:45 BP 158 / 85; Pulse 61; Resp 18 S; Temp 97.9(O); Pulse Ox 99% on R/A; Weight 91.17 kg gr2 (R); Height 5 ft. 10 in. (177.80 cm) (R); Pain 7/10; 16:26 BP 129 / 69; Pulse 54; Resp 18; Pulse Ox 95% on R/A; Pain 4/10; jjr 17:38 BP 127 / 76; Pulse 54; Resp 18; Temp 98.0; Pulse Ox 95% ; Pain 8/10; jam1 14:45 Body Mass Index 28.84 (91.17 kg, 177.80 cm) gr2 Vitals: 14:45 Log In Time: July 07, 2016 at 14:45. gr2 ED Course: 14:45 Patient visited by Bg Feliciano. gr2 14:45 Jb Bhat is Private Physician. gr2 14:45 Patient moved to Waiting gr2 14:46 Patient visited by Bg Feliciano. gr2 14:46 Patient moved to Pre RCE gr2 14:57 Triage Initiated kp 15:03 Patient moved to [facility] 15:04 [facility] dt4 15:04 Carroll Smith MD is Attending Physician. dt4 15:05 Patient visited by Mallika Chaudhari PA-C. dt4 15:21 Patient moved to I4 / M4 jr 15:35 Pt greeted and oriented to ED. Patient advised of names of staff involved in care, jam1 location of call rivera, wait times and NPO status. Patient has correct armband on for positive identification. Placed in gown. Bed in low position. Call light in reach. Side rails up X 1. Adult w/ patient. Door closed. 15:55 Patient visited by Patricia Feliciano RN. jjr 15:55 The patient / caregiver is instructed regarding the plan of care and ED course. jjr 15:55 Inserted saline lock: 20 gauge in right antecubital area and blood collected. by Edel stephen RN. 16:00 [facility] Payment Agreement was scanned into [employer] and attached to record. ks16 16:28 Patient visited by Patricia Feliciano RN. jjr 16:34 Patient visited by Mallika Chaudhari PA-C. dt4 16:35 Patient moved to Ultrasound hgl 16:47 CT ABD & PELVIS: No Contrast Returned. EDMS 16:52 Patient moved to I4 / M4 hgl 17:32 Patient visited by Alma Tyler RN. mk4 17:35 Jb Bhat is Referral Physician. dt4 17:45 US Abd Limited Returned. EDMS 18:02 Discontinued lock intact, bleeding controlled, pressure dressing applied, No jjr redness/swelling at site. No procedures done that require assistance. 07/08 18:52 T-Sheet-- Draft Copy was scanned into [employer] and attached to record. klr Administered Medications: 07/07 15:53 Drug: NS 0.9% 500 ml [sodium chloride 0.9 % intravenous solution] Route: IV; Rate: jjr bolus; Site: right antecubital; 16:46 Follow up: IV Status: Completed infusion; IV Intake: 500ml jjr 15:53 Drug: morphine 2 mg [morphine 2 mg/mL intravenous cartridge (1 mL)] Route: IVP; Site: jjr right antecubital; 16:26 Follow up: BP 129 / 69; Pulse 54 bpm; Resp 18 bpm; Pulse Ox 95% RA; Pain 4/10 Adult jjr 15:53 Drug: Ondansetron 4 mg [ondansetron HCl 2 mg/mL intravenous solution (2 mL)] Route: jjr IVP; Site: right antecubital; Intake: 16:46 IV: 500.00ml; Total: 500.00ml. jjr Order Results: Lab Order: UA; SPEC'M 07/07/16 15:12 Test: APPEARANCE, URINE; Value: CLEAR; Range: CLEAR; Status: F Test: COLOR, URINE; Value: STRAW; Range: YELLOW; Status: F Test: PH,URINE; Value: 5.0; Range: 5.0-9.0; Units: UNITS; Status: F Test: SPECIFIC GRAVITY URINE AUTO; Value: 1.006; Range: 1.002-1.035; Status: F Test: PROTEIN, URINE AUTO; Value: NEGATIVE; Range: NEGATIVE; Units: mg/dL; Status: F Test: GLUCOSE, URINE (UA) AUTO; Value: NEGATIVE; Range: NEGATIVE; Units: mg/dL; Status: F Test: KETONE, URINE AUTO; Value: NEGATIVE; Range: NEGATIVE; Units: mg/dL; Status: F Test: UROBILINOGEN, URINE AUTO; Value: 0.2; Range: 0.0-2.0; Units: mg/dL; Status: F Test: BILIRUBIN, URINE AUTO; Value: NEGATIVE; Range: NEGATIVE; Status: F Test: NITRITE, URINE AUTO; Value: NEGATIVE; Range: NEGATIVE; Status: F Test: LEUKOCYTE ESTERASE, URINE AUTO; Value: NEGATIVE; Range: NEGATIVE; Status: F Test: BLOOD, URINE BLOOD; Value: NEGATIVE; Range: NEGATIVE; Status: F Test: WBC, URINE AUTO; Value: 0; Range: 0-3; Units: /HPF; Status: F Test: RBC, URINE AUTO; Value: 1; Range: 0-3; Units: /HPF; Status: F Test: BACTERIA, URINE AUTO; Value: NEGATIVE; Range: NEGATIVE; Status: F Test: SQUAMOUS EPITHELIAL CELL UR AU; Value: 0; Range: 0-6; Units: /HPF; Status: F Test: MUCUS, URINE; Value: SMALL; Range: NEGATIVE; Status: F Test: HYALINE CAST, URINE AUTO; Value: 0; Range: 0-1; Units: /LPF; Status: F Lab Order: CBC with Diff; SPEC'M 07/07/16 15:46 Test: WHITE BLOOD COUNT; Value: 7.4; Range: 4.0-10.0; Units: K/mm3; Status: F Test: RED BLOOD COUNT; Value: 5.47; Range: 4.30-6.10; Units: M/mm3; Status: F Test: HEMOGLOBIN; Value: 17.8; Range: 14.0-18.0; Units: g/dl; Status: F Test: HEMATOCRIT; Value: 51.3; Range: 42.0-52.0; Units: %; Status: F Test: MEAN CORPUSCULAR VOLUME; Value: 93.8; Range: 80.0-96.0; Units: fl; Status: F Test: MEAN CORPUSCULAR HEMOGLOBIN; Value: 32.5; Range: 27.0-33.0; Units: pg; Status: F Test: MEAN CORPUSCULAR HGB CONC; Value: 34.6; Range: 32.0-36.5; Units: g/dl; Status: F Test: RED CELL DISTRIBUTION WIDTH; Value: 12.0; Range: 11.5-14.5; Units: %; Status: F Test: PLATELET COUNT, AUTOMATED; Value: 170; Range: 150-450; Units: k/mm3; Status: F Test: NEUTROPHILS %; Value: 59.8; Range: 36.0-66.0; Units: %; Status: F Test: LYMPH %; Value: 26.5; Range: 24.0-44.0; Units: %; Status: F Test: MONO %; Value: 7.5; Range: 0.0-5.0; Abnormal: Above high normal; Units: %; Status: F Test: EOS %; Value: 4.1; Range: 0.0-3.0; Abnormal: Above high normal; Units: %; Status: F Test: BASO %; Value: 0.9; Range: 0.0-1.0; Units: %; Status: F Test: LARGE UNSTAINED CELL %; Value: 1.3; Range: 0.0-4.0; Units: %; Status: F Test: NEUTROPHILS #; Value: 4.4; Range: 1.8-7.7; Units: K/mm3; Status: F Test: LYMPH #; Value: 2.0; Range: 1.5-4.5; Units: K/mm3; Status: F Test: MONO #; Value: 0.6; Range: 0.0-0.8; Units: K/mm3; Status: F Test: EOS #; Value: 0.3; Range: 0.0-0.50; Units: K/mm3; Status: F Test: BASO #; Value: 0.1; Range: 0.0-0.2; Units: K/mm3; Status: F Test: LARGE UNSTAINED CELL #; Value: 0.1; Range: 0.0-0.4; Units: K/mm3; Status: F Lab Order: Basic Metabolic Profile; [facility] 07/07/16 15:46 Test: GLUCOSE, FASTING; Value: 85; Range: 80-110; Units: MG/DL; Status: F Test: BLOOD UREA NITROGEN; Value: 15; Range: 7-18; Units: MG/DL; Status: F Test: CREATININE FOR GFR; Value: 0.79; Range: 0.70-1.30; Units: MG/DL; Status: F Test: GLOMERULAR FILTRATION RATE; Value: > 60.0; Range: >49; Status: F Test: SODIUM LEVEL; Value: 141; Range: 136-145; Units: MEQ/L; Status: F Test: POTASSIUM SERUM; Value: 3.9; Range: 3.5-5.1; Units: MEQ/L; Status: F Test: CHLORIDE LEVEL; Value: 108; Range: 98-107; Abnormal: Above high normal; Units: MEQ/L; Status: F Test: CARBON DIOXIDE LEVEL; Value: 26; Range: 21-32; Units: MEQ/L; Status: F Test: ANION GAP; Value: 7; Range: 8-16; Abnormal: Below low normal; Units: MEQ/L; Status: F Test: CALCIUM LEVEL; Value: 9.2; Range: 8.8-10.2; Units: MG/DL; Status: F Test Note: ; Units are mL/min/1.73 m2 Chronic Kidney Disease Staging per NKF: Stage I & II GFR >=60 Normal to Mildly Decreased Stage III GFR 30-59 Moderately Decreased Stage IV GFR 15-29 Severely Decreased Stage V GFR <15 Very Little GFR Left ESRD GFR <15 on [facility]LLER Lab Order: CRP; [facility] 07/07/16 15:46 Test: C REACTIVE PROTEIN QUANTITATIV; Value: 0.42; Range: 0.00-0.30; Abnormal: Above high normal; Units: MG/DL; Status: F Lab Order: LIPASE; [facility] 07/07/16 15:46 Test: LIPASE; Value: 283; Range: 73-393; Units: U/L; Status: F Lab Order: LIVER PROFILE; [facility] 07/07/16 15:46 Test: AST/SGOT; Value: 27; Range: 15-37; Units: U/L; Status: F Test: ALT/SGPT; Value: 61; Range: 12-78; Units: U/L; Status: F Test: ALKALINE PHOSPHATASE; Value: 96; Range: 45-117; Units: U/L; Status: F Test: BILIRUBIN,TOTAL; Value: 0.7; Range: 0.2-1.0; Units: MG/DL; Status: F Test: BILIRUBIN,DIRECT; Value: 0.2; Range: 0.0-0.2; Units: MG/DL; Status: F Test: TOTAL PROTEIN; Value: 7.5; Range: 6.4-8.2; Units: GM/DL; Status: F Test: ALBUMIN; Value: 4.0; Range: 3.2-5.2; Units: GM/DL; Status: F Test: ALBUMIN/GLOBULIN RATIO; Value: 1.14; Range: 1.00-1.93; Status: F Radiology Order: CT ABD & PELVIS: No Contrast Test: CT ABD & PELVIS: No Contrast REASON FOR EXAMINATION: RIGHT FLANK PAIN; CT abdomen pelvis without IV or bowel contrast:; ; Comparisons 07/06/2010.; ; The visualized lung peres are unremarkable.; ; There there are multiple cysts in the left hepatic lobe, one in the medial; segment measuring 3.5 cm (2.4 cm previously). There is a second bilobed cyst; measuring 4.6 cm (previously 2.3 cm). A third in the lateral segment measuring; 4.4 cm (previously 2.0 cm).; ; The hepatic parenchyma is otherwise homogeneous and unremarkable.; ; The gallbladder is unremarkable.; ; Pancreas is normal size. There are numerous pancreatic calcifications, as; previously, likely sequela of prior pancreatitis. There is no acute pancreatic; inflammation.; ; Spleen is normal size and homogeneous.; ; The adrenals are unremarkable.; ; There are bilateral renal cortical cysts, all approximately 1 cm in size with the; exception of a large cyst at the lower pole of the left kidney measuring 7.6 cm; (7.3 cm previously).; ; No renal collecting system calculi are identified. There are vascular; atheromatous calcifications in the right kidney.; ; There are no ureteral calculi.; ; There is no right hydroureter. There is mild left hydroureter, unchanged. 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 This is unchanged.; ; There is an infrarenal abdominal aortic aneurysm measuring 4.1 x 3.4 cm. There; is no periaortic or retroperitoneal hematoma.; ; No bowel distension. Mesentery is unremarkable.; ; ; ; Pelvis:; ; The appendix has a normal appearance. There is no ascites or adenopathy. There; are occasional diverticula in the sigmoid colon. No CT evidence of; diverticulitis.; ; Impression:; ; Ureterocele in the bladder on the left. Mild left hydroureter. No left renal; ureteral calculi.; ; There is no hydronephrosis or hydroureter on the right. There are no right renal; pelvis or ureteral calculi. There are right renal parenchymal calcifications,; likely vascular atheroma.; ; There are bilateral renal cortical cysts, largest in the lower pole left kidney.; ; There are pancreatic calcifications, likely sequela of prior pancreatitis.; ; There are hepatic cysts as described.; ; There is an infrarenal abdominal aortic aneurysm measuring 4.1 x 3.4 cm. There; is no periaortic or retroperitoneal hematoma.; ; ; Signed by; Justice Blanco MD 07/07/2016 04:18 P; Radiology Order: US Abd Limited Test: US Abd Limited REASON FOR EXAMINATION: Biliary Colic; Clinical: Biliary colic.; ; Technique: Real time ware scale ultrasound examination using curved array; transducer.; ; Findings:; The gallbladder is normal without gallstones, wall thickening, or pericholecystic; fluid. No biliary ductal dilatation is appreciated and the common bile duct; measures 4.1 mm diameter. Pancreas demonstrates scattered calcifications; consistent with chronic pancreatitis. Liver demonstrates fatty infiltration; along with three left lobe cysts measuring 3.6 cm, 4.6 cm, and 3.3 cm maximal; diameter each. Right kidney is normal in reniform shape without hydronephrosis; and demonstrates few cysts measuring up to approximately 2 cm.; ; Impression:; 1. Normal gallbladder and biliary system.; 2. Hepatic and renal cysts.; 3. Evidence for chronic pancreatitis.; ; ; Signed by; Karlos Mullen MD 07/07/2016 05:08 P; Outcome: 17:37 Discharge ordered by Provider. dt4 18:03 Discharge Assessment: patient administered narcotics - yes. Pt provided with safe jjr discharge. The following High Risk Discharge criteria are identified: None. Discharged to home ambulatory, with significant other. Condition: stable. Discharge instructions given to patient, Instructed on discharge instructions, follow up and referral plans. Demonstrated understanding of instructions. CT Study completed. Ultrasound Study completed. Property sent home with patient. 18:03 Patient left the ED. jjr Signatures: Dispatcher [employer] EDMS Minna Mukherjee, RN RN Eliana Cleaning, INDUSTRIAL TRUCK DRIVER INDUSTRIAL TRUCK DRIVER jam1 Patricia Feliciano RN RN zafar Holguin, Yeison hgl Bg Feliciano gr2 Alma Tyler RN RN mkMallika Good, PACrys PAJulietC dt4 Lois Pual, Reg Reg ks16 Julita Lewis Chart Complete MTDD
--- NOTE | 2016-07-09 21:22 | EDDOCDS ---
Physician Documentation [facility] Name: Shiraz Clemente Age: 61 yrs Sex: Male : 1955 Arrival Date: 07/07/2016 Time: 14:43 Bed I4 / M4 Private MD: Jb Bhat P. Disposition: 07/07/16 17:37 Discharged to Home/Self Care. Impression: Other abdominal pain - RUQ, RIGHT FLANK PAIN, Abdominal aortic aneurysm, without rupture - INFRARENAL. - Condition is Stable. - Discharge Instructions: Abdominal Aortic Aneurysm, Abdominal Pain, Adult. - Medication Reconciliation, Local Pharmacy Hours form. - Follow up: Emergency Department; When: As needed; Reason: Worsening of conditions. Follow up: Jb Bhat; When: 2 - 3 days; Reason: Wound/Symptom Recheck, Recheck today's complaints, Continuance of care. - Problem is new. - Symptoms have improved. Historical: - Allergies: No known drug Allergies; - Home Meds: 1. Vitamin D Oral 2000 units daily (Last dose: 07/07/2016 06:00) 2. aspirin 81 mg Oral tab 1 tab once daily (Last dose: 07/07/2016 06:00) 3. amlodipine 10 mg Oral tab 1 tab nightly (Last dose: 07/06/2016) 4. atenolol 50 mg Oral tab 1 tab once daily (Last dose: 07/07/2016 06:00) 5. atorvastatin 40 mg oral tab 1 tab once daily (Last dose: 07/07/2016 06:00) 6. metformin 500 mg Oral tr24 1 tab twice a day (Last dose: 07/06/2016) 7. lisinopril 10 mg Oral tab 1 tab once daily (Last dose: 07/07/2016 06:00) - PMHx: Hypercholesterolemia; Hypertension; Diabetes - NIDDM: controlled; - PSHx: left knee surgery for ruptured patellar tendon; - Social history: Smoking status: Patient uses tobacco products, heavy tobacco smoker. No barriers to communication noted, The patient speaks fluent Lao. - : The pt / caregiver states he / she is not on anticoagulants. Home medication list is obtained from the patient. - Exposure Risk Screening:: None identified. Vital Signs: 07/07 14:45 BP 158 / 85; Pulse 61; Resp 18 S; Temp 97.9(O); Pulse Ox 99% on R/A; Weight 91.17 kg / gr2 201 lbs (R); Height 5 ft. 10 in. (177.80 cm) (R); Pain 7/10; 16:26 BP 129 / 69; Pulse 54; Resp 18; Pulse Ox 95% on R/A; Pain 4/10; jjr 17:38 BP 127 / 76; Pulse 54; Resp 18; Temp 98.0; Pulse Ox 95% ; Pain 8/10; jam1 14:45 Body Mass Index 28.84 (91.17 kg, 177.80 cm) gr2 MDM: 15:08 UA Ordered. EDMS 15:20 IV Saline Lock ordered. dt4 15:20 NS 0.9% 500 ml IV at bolus once ordered. dt4 15:20 morphine 2 mg IVP once ordered. dt4 15:21 CT ABD & PELVIS: No Contrast Ordered. EDMS 15:21 CBC with Diff Ordered. EDMS 15:21 Basic Metabolic Profile Ordered. EDMS 15:21 CRP Ordered. EDMS 15:47 LIPASE Ordered. EDMS 15:47 LIVER PROFILE Ordered. EDMS 15:48 Ondansetron 4 mg IVP once ordered. dt4 15:51 Financial registration complete. [email or web address] 16:00 [facility] Payment Agreement was scanned into [employer] and attached to record. ks16 16:28 US Abd Limited Ordered. EDMS 07/08 18:52 T-Sheet-- Draft Copy was scanned into [employer] and attached to record. klr Administered Medications: 07/07 15:53 Drug: NS 0.9% 500 ml [sodium chloride 0.9 % intravenous solution] Route: IV; Rate: jjr bolus; Site: right antecubital; 16:46 Follow up: IV Status: Completed infusion; IV Intake: 500ml jjr 15:53 Drug: morphine 2 mg [morphine 2 mg/mL intravenous cartridge (1 mL)] Route: IVP; Site: jjr right antecubital; 16:26 Follow up: BP 129 / 69; Pulse 54 bpm; Resp 18 bpm; Pulse Ox 95% RA; Pain 4/10 Adult jjr 15:53 Drug: Ondansetron 4 mg [ondansetron HCl 2 mg/mL intravenous solution (2 mL)] Route: jjr IVP; Site: right antecubital; Signatures: Dispatcher [employer] EDMinna Pena RN RN Patricia Corona RN RN Mallika Tinsley PA-C PA-C dt4 Lois Paul, Reg Reg ks16 Julita Lewis The chart was reviewed and I authenticate all verbal orders and agree with the evaluation and treatment provided.Corrections: (The following items were deleted from the chart) 15:45 15:21 LIVER PROFILE+LAB ordered. EDMS EDMS 15:45 15:21 LIPASE+LAB ordered. EDMS EDMS Attachments: 16:00 [facility] Payment Agreement [email or web address] 07/08 18:52 T-Sheet-- Draft Copy wisam Chart Complete MTDD
--- NOTE | 2016-07-09 21:22 | EDDOCDS ---
Physician Documentation [facility] Name: Shiraz Clemente Age: 61 yrs Sex: Male : 1955 Arrival Date: 07/07/2016 Time: 14:43 Bed I4 / M4 Private MD: Jb Bhat P. Disposition: 07/07/16 17:37 Discharged to Home/Self Care. Impression: Other abdominal pain - RUQ, RIGHT FLANK PAIN, Abdominal aortic aneurysm, without rupture - INFRARENAL. - Condition is Stable. - Discharge Instructions: Abdominal Aortic Aneurysm, Abdominal Pain, Adult. - Medication Reconciliation, Local Pharmacy Hours form. - Follow up: Emergency Department; When: As needed; Reason: Worsening of conditions. Follow up: Jb Bhat; When: 2 - 3 days; Reason: Wound/Symptom Recheck, Recheck today's complaints, Continuance of care. - Problem is new. - Symptoms have improved. Historical: - Allergies: No known drug Allergies; - Home Meds: 1. Vitamin D Oral 2000 units daily (Last dose: 07/07/2016 06:00) 2. aspirin 81 mg Oral tab 1 tab once daily (Last dose: 07/07/2016 06:00) 3. amlodipine 10 mg Oral tab 1 tab nightly (Last dose: 07/06/2016) 4. atenolol 50 mg Oral tab 1 tab once daily (Last dose: 07/07/2016 06:00) 5. atorvastatin 40 mg oral tab 1 tab once daily (Last dose: 07/07/2016 06:00) 6. metformin 500 mg Oral tr24 1 tab twice a day (Last dose: 07/06/2016) 7. lisinopril 10 mg Oral tab 1 tab once daily (Last dose: 07/07/2016 06:00) - PMHx: Hypercholesterolemia; Hypertension; Diabetes - NIDDM: controlled; - PSHx: left knee surgery for ruptured patellar tendon; - Social history: Smoking status: Patient uses tobacco products, heavy tobacco smoker. No barriers to communication noted, The patient speaks fluent Slovenian. - : The pt / caregiver states he / she is not on anticoagulants. Home medication list is obtained from the patient. - Exposure Risk Screening:: None identified. Vital Signs: 07/07 14:45 BP 158 / 85; Pulse 61; Resp 18 S; Temp 97.9(O); Pulse Ox 99% on R/A; Weight 91.17 kg / gr2 201 lbs (R); Height 5 ft. 10 in. (177.80 cm) (R); Pain 7/10; 16:26 BP 129 / 69; Pulse 54; Resp 18; Pulse Ox 95% on R/A; Pain 4/10; jjr 17:38 BP 127 / 76; Pulse 54; Resp 18; Temp 98.0; Pulse Ox 95% ; Pain 8/10; jam1 14:45 Body Mass Index 28.84 (91.17 kg, 177.80 cm) gr2 MDM: 15:08 UA Ordered. EDMS 15:20 IV Saline Lock ordered. dt4 15:20 NS 0.9% 500 ml IV at bolus once ordered. dt4 15:20 morphine 2 mg IVP once ordered. dt4 15:21 CT ABD & PELVIS: No Contrast Ordered. EDMS 15:21 CBC with Diff Ordered. EDMS 15:21 Basic Metabolic Profile Ordered. EDMS 15:21 CRP Ordered. EDMS 15:47 LIPASE Ordered. EDMS 15:47 LIVER PROFILE Ordered. EDMS 15:48 Ondansetron 4 mg IVP once ordered. dt4 15:51 Financial registration complete. [email or web address] 16:00 [facility] Payment Agreement was scanned into [employer] and attached to record. [email or web address] 16:28 US Abd Limited Ordered. EDMS 07/08 18:52 T-Sheet-- Draft Copy was scanned into [employer] and attached to record. klr Administered Medications: 07/07 15:53 Drug: NS 0.9% 500 ml [sodium chloride 0.9 % intravenous solution] Route: IV; Rate: jjr bolus; Site: right antecubital; 16:46 Follow up: IV Status: Completed infusion; IV Intake: 500ml jjr 15:53 Drug: morphine 2 mg [morphine 2 mg/mL intravenous cartridge (1 mL)] Route: IVP; Site: jjr right antecubital; 16:26 Follow up: BP 129 / 69; Pulse 54 bpm; Resp 18 bpm; Pulse Ox 95% RA; Pain 4/10 Adult jjr 15:53 Drug: Ondansetron 4 mg [ondansetron HCl 2 mg/mL intravenous solution (2 mL)] Route: jjr IVP; Site: right antecubital; Signatures: Dispatcher [employer] EDMinna Pena RN RN Patricia Corona RN RN Mallika Tinsley PA-C PA-C dt4 Lois Paul, Reg Reg [email or web address] Julita Lewis The chart was reviewed and I authenticate all verbal orders and agree with the evaluation and treatment provided.Corrections: (The following items were deleted from the chart) 15:45 15:21 LIVER PROFILE+LAB ordered. EDMS EDMS 15:45 15:21 LIPASE+LAB ordered. EDMS EDMS Attachments: 16:00 [facility] Payment Agreement [email or web address] 07/08 18:52 T-Sheet-- Draft Copy wisam Chart Complete MTDD
--- NOTE | 2016-07-09 21:23 | EDDOCDS ---
Nurse's Notes [facility] Name: Shiraz Clemente Age: 61 yrs Sex: Male : 1955 Arrival Date: 07/07/2016 Time: 14:43 Bed I4 / M4 Private MD: bJ Bhat P. Diagnosis: Other abdominal pain-RUQ, RIGHT FLANK PAIN;Abdominal aortic aneurysm, without rupture-INFRARENAL Presentation: 07/07 14:55 Presenting complaint: Patient states: right flank pain radiating to abdomen since [facility] yesterday, Sent from Dr Bhat's office. Acute neurological deficits are not present. Mechanism of Injury: No Mechanism of Injury. Adult Sepsis Screening: The patient does not have new or worsening altered mentation. Patient's respiratory rate is less than 22. Systolic blood pressure is greater than 100. Patient has a qSOFA score of 0- Negative Sepsis Screen. Suicide/Homicide risk assessment- the patient denies having any suicidal and/or homicidal ideations and does not present with any other emotional, behavioral or mental health complaints. Status: Patient is not a guest service supervisor or dependent. Transition of care: patient was received from a primary care office; Dr Bhat's office. 14:55 Acuity: DELFIN Level 3 [facility] 14:55 Method Of Arrival: Walkin/Carried/Asstd [facility] Triage Assessment: 15:01 General: Appears in no apparent distress, well nourished, well groomed, Behavior is j appropriate for age, pleasant. Pain: Location: right flank Pain currently is 5 out of 10 on a pain scale. Pain radiates to right lower quadrant. Pt Declines HIV testing. Neurological: Level of Consciousness is awake, alert, Oriented to person, place, time. Respiratory: Airway is patent Respiratory effort is even, unlabored, Respiratory pattern is regular, symmetrical. GI: Denies nausea, vomiting. : Reports pain in right flank(s) Pain is 5 out of 10 on a pain scale. Derm: Skin is pink, warm & dry. Musculoskeletal: Reports pain in right flank Pain is 5 out of 10 on a pain scale. Historical: - Allergies: No known drug Allergies; - Home Meds: 1. Vitamin D Oral 2000 units daily (Last dose: 07/07/2016 06:00) 2. aspirin 81 mg Oral tab 1 tab once daily (Last dose: 07/07/2016 06:00) 3. amlodipine 10 mg Oral tab 1 tab nightly (Last dose: 07/06/2016) 4. atenolol 50 mg Oral tab 1 tab once daily (Last dose: 07/07/2016 06:00) 5. atorvastatin 40 mg oral tab 1 tab once daily (Last dose: 07/07/2016 06:00) 6. metformin 500 mg Oral tr24 1 tab twice a day (Last dose: 07/06/2016) 7. lisinopril 10 mg Oral tab 1 tab once daily (Last dose: 07/07/2016 06:00) - PMHx: Hypercholesterolemia; Hypertension; Diabetes - NIDDM: controlled; - PSHx: left knee surgery for ruptured patellar tendon; - Social history: Smoking status: Patient uses tobacco products, heavy tobacco smoker. No barriers to communication noted, The patient speaks fluent Anguillan. - : The pt / caregiver states he / she is not on anticoagulants. Home medication list is obtained from the patient. - Exposure Risk Screening:: None identified. Screenin:35 Screening information is obtained from the patient. Primary language is Anguillan. Fall jam1 risk: No risks identified. Assistance ADL's: requires no assistance with activities of daily living. Abuse/DV Screen: The patient / caregiver reports he/she is: not in a situation that causes fear, pain or injury. Nutritional screening: No deficits noted. Exposure Risk Screening: None identified. Advance Directives: Currently, there is a health care proxy, lana block friend. There is no active DNR order. There is no living will. There is an active Power of Barrel Assembly Inspector, geovanna block friend. Advance directive information has not previously been placed in an [facility] medical record. Further advance directive information is declined. home support is adequate. Assessment: 15:54 General: Appears in no apparent distress, well nourished, well groomed, Behavior is jjr appropriate for age. Pain: Location: posterior aspect of right lateral abdomen Pain radiates to right low back, right lower quadrant and groin Pain began 1 day ago Aggravated by lying supine and activity. Neurological: No deficits noted. Respiratory: No deficits noted. GI: Abdomen is non- distended Bowel sounds present X 4 quads. Abd is soft X 4 quads Abd is tender to palpation in posterior aspect of right lateral abdomen and right lower quadrant. : Denies pain with urination urinary frequency, urgency. Derm: No deficits noted. 16:27 General: Appears in no apparent distress, reports less pain with movement than jjr experienced earlier, pain remains the worst to right lateral abdomen. 18:02 General: Appears in no apparent distress, continues to report pain to right lateral jjr abdomen radiating to right low back and RLQ. Vital Signs: 14:45 BP 158 / 85; Pulse 61; Resp 18 S; Temp 97.9(O); Pulse Ox 99% on R/A; Weight 91.17 kg gr2 (R); Height 5 ft. 10 in. (177.80 cm) (R); Pain 7/10; 16:26 BP 129 / 69; Pulse 54; Resp 18; Pulse Ox 95% on R/A; Pain 4/10; jjr 17:38 BP 127 / 76; Pulse 54; Resp 18; Temp 98.0; Pulse Ox 95% ; Pain 8/10; jam1 14:45 Body Mass Index 28.84 (91.17 kg, 177.80 cm) gr2 Vitals: 14:45 Log In Time: July 07, 2016 at 14:45. gr2 ED Course: 14:45 Patient visited by Bg Feliciano. gr2 14:45 Jb Bhat is Private Physician. gr2 14:45 Patient moved to Waiting gr2 14:46 Patient visited by Bg Feliciano. gr2 14:46 Patient moved to Pre RCE gr2 14:57 Triage Initiated kp 15:03 Patient moved to Triage 3 [facility] 15:04 Mallika Chaudhari PA-C [facility]. dt4 15:04 Carroll Smith MD is Attending Physician. dt4 15:05 Patient visited by Mallika Chaudhari PA-C. dt4 15:21 Patient moved to I4 / M4 jr 15:35 Pt greeted and oriented to ED. Patient advised of names of staff involved in care, jam1 location of call rivera, wait times and NPO status. Patient has correct armband on for positive identification. Placed in gown. Bed in low position. Call light in reach. Side rails up X 1. Adult w/ patient. Door closed. 15:55 Patient visited by Patricia Feliciano RN. jjr 15:55 The patient / caregiver is instructed regarding the plan of care and ED course. jjr 15:55 Inserted saline lock: 20 gauge in right antecubital area and blood collected. by Edel stephen RN. 16:00 [facility] Payment Agreement was scanned into [employer] and attached to record. ks16 16:28 Patient visited by Patricia Feliciano RN. jjr 16:34 Patient visited by Mallika Chaudhari PA-C. dt4 16:35 Patient moved to Ultrasound hgl 16:47 CT ABD & PELVIS: No Contrast Returned. EDMS 16:52 Patient moved to I4 / M4 hgl 17:32 Patient visited by Alma Tyler RN. mk4 17:35 Jb Bhat is Referral Physician. dt4 17:45 US Abd Limited Returned. EDMS 18:02 Discontinued lock intact, bleeding controlled, pressure dressing applied, No jjr redness/swelling at site. No procedures done that require assistance. 07/08 18:52 T-Sheet-- Draft Copy was scanned into [employer] and attached to record. klr Administered Medications: 07/07 15:53 Drug: NS 0.9% 500 ml [sodium chloride 0.9 % intravenous solution] Route: IV; Rate: jjr bolus; Site: right antecubital; 16:46 Follow up: IV Status: Completed infusion; IV Intake: 500ml jjr 15:53 Drug: morphine 2 mg [morphine 2 mg/mL intravenous cartridge (1 mL)] Route: IVP; Site: jjr right antecubital; 16:26 Follow up: BP 129 / 69; Pulse 54 bpm; Resp 18 bpm; Pulse Ox 95% RA; Pain 4/10 Adult jjr 15:53 Drug: Ondansetron 4 mg [ondansetron HCl 2 mg/mL intravenous solution (2 mL)] Route: jjr IVP; Site: right antecubital; Intake: 16:46 IV: 500.00ml; Total: 500.00ml. jjr Order Results: Lab Order: UA; SPEC'M 07/07/16 15:12 Test: APPEARANCE, URINE; Value: CLEAR; Range: CLEAR; Status: F Test: COLOR, URINE; Value: STRAW; Range: YELLOW; Status: F Test: PH,URINE; Value: 5.0; Range: 5.0-9.0; Units: UNITS; Status: F Test: SPECIFIC GRAVITY URINE AUTO; Value: 1.006; Range: 1.002-1.035; Status: F Test: PROTEIN, URINE AUTO; Value: NEGATIVE; Range: NEGATIVE; Units: mg/dL; Status: F Test: GLUCOSE, URINE (UA) AUTO; Value: NEGATIVE; Range: NEGATIVE; Units: mg/dL; Status: F Test: KETONE, URINE AUTO; Value: NEGATIVE; Range: NEGATIVE; Units: mg/dL; Status: F Test: UROBILINOGEN, URINE AUTO; Value: 0.2; Range: 0.0-2.0; Units: mg/dL; Status: F Test: BILIRUBIN, URINE AUTO; Value: NEGATIVE; Range: NEGATIVE; Status: F Test: NITRITE, URINE AUTO; Value: NEGATIVE; Range: NEGATIVE; Status: F Test: LEUKOCYTE ESTERASE, URINE AUTO; Value: NEGATIVE; Range: NEGATIVE; Status: F Test: BLOOD, URINE BLOOD; Value: NEGATIVE; Range: NEGATIVE; Status: F Test: WBC, URINE AUTO; Value: 0; Range: 0-3; Units: /HPF; Status: F Test: RBC, URINE AUTO; Value: 1; Range: 0-3; Units: /HPF; Status: F Test: BACTERIA, URINE AUTO; Value: NEGATIVE; Range: NEGATIVE; Status: F Test: SQUAMOUS EPITHELIAL CELL UR AU; Value: 0; Range: 0-6; Units: /HPF; Status: F Test: MUCUS, URINE; Value: SMALL; Range: NEGATIVE; Status: F Test: HYALINE CAST, URINE AUTO; Value: 0; Range: 0-1; Units: /LPF; Status: F Lab Order: CBC with Diff; SPEC'M 07/07/16 15:46 Test: WHITE BLOOD COUNT; Value: 7.4; Range: 4.0-10.0; Units: K/mm3; Status: F Test: RED BLOOD COUNT; Value: 5.47; Range: 4.30-6.10; Units: M/mm3; Status: F Test: HEMOGLOBIN; Value: 17.8; Range: 14.0-18.0; Units: g/dl; Status: F Test: HEMATOCRIT; Value: 51.3; Range: 42.0-52.0; Units: %; Status: F Test: MEAN CORPUSCULAR VOLUME; Value: 93.8; Range: 80.0-96.0; Units: fl; Status: F Test: MEAN CORPUSCULAR HEMOGLOBIN; Value: 32.5; Range: 27.0-33.0; Units: pg; Status: F Test: MEAN CORPUSCULAR HGB CONC; Value: 34.6; Range: 32.0-36.5; Units: g/dl; Status: F Test: RED CELL DISTRIBUTION WIDTH; Value: 12.0; Range: 11.5-14.5; Units: %; Status: F Test: PLATELET COUNT, AUTOMATED; Value: 170; Range: 150-450; Units: k/mm3; Status: F Test: NEUTROPHILS %; Value: 59.8; Range: 36.0-66.0; Units: %; Status: F Test: LYMPH %; Value: 26.5; Range: 24.0-44.0; Units: %; Status: F Test: MONO %; Value: 7.5; Range: 0.0-5.0; Abnormal: Above high normal; Units: %; Status: F Test: EOS %; Value: 4.1; Range: 0.0-3.0; Abnormal: Above high normal; Units: %; Status: F Test: BASO %; Value: 0.9; Range: 0.0-1.0; Units: %; Status: F Test: LARGE UNSTAINED CELL %; Value: 1.3; Range: 0.0-4.0; Units: %; Status: F Test: NEUTROPHILS #; Value: 4.4; Range: 1.8-7.7; Units: K/mm3; Status: F Test: LYMPH #; Value: 2.0; Range: 1.5-4.5; Units: K/mm3; Status: F Test: MONO #; Value: 0.6; Range: 0.0-0.8; Units: K/mm3; Status: F Test: EOS #; Value: 0.3; Range: 0.0-0.50; Units: K/mm3; Status: F Test: BASO #; Value: 0.1; Range: 0.0-0.2; Units: K/mm3; Status: F Test: LARGE UNSTAINED CELL #; Value: 0.1; Range: 0.0-0.4; Units: K/mm3; Status: F Lab Order: Basic Metabolic Profile; [facility] 07/07/16 15:46 Test: GLUCOSE, FASTING; Value: 85; Range: 80-110; Units: MG/DL; Status: F Test: BLOOD UREA NITROGEN; Value: 15; Range: 7-18; Units: MG/DL; Status: F Test: CREATININE FOR GFR; Value: 0.79; Range: 0.70-1.30; Units: MG/DL; Status: F Test: GLOMERULAR FILTRATION RATE; Value: > 60.0; Range: >49; Status: F Test: SODIUM LEVEL; Value: 141; Range: 136-145; Units: MEQ/L; Status: F Test: POTASSIUM SERUM; Value: 3.9; Range: 3.5-5.1; Units: MEQ/L; Status: F Test: CHLORIDE LEVEL; Value: 108; Range: 98-107; Abnormal: Above high normal; Units: MEQ/L; Status: F Test: CARBON DIOXIDE LEVEL; Value: 26; Range: 21-32; Units: MEQ/L; Status: F Test: ANION GAP; Value: 7; Range: 8-16; Abnormal: Below low normal; Units: MEQ/L; Status: F Test: CALCIUM LEVEL; Value: 9.2; Range: 8.8-10.2; Units: MG/DL; Status: F Test Note: ; Units are mL/min/1.73 m2 Chronic Kidney Disease Staging per NKF: Stage I & II GFR >=60 Normal to Mildly Decreased Stage III GFR 30-59 Moderately Decreased Stage IV GFR 15-29 Severely Decreased Stage V GFR <15 Very Little GFR Left ESRD GFR <15 on MEDIEVAL ENGLISH LITERATURE PROFESSOR Lab Order: CRP; [facility] 07/07/16 15:46 Test: C REACTIVE PROTEIN QUANTITATIV; Value: 0.42; Range: 0.00-0.30; Abnormal: Above high normal; Units: MG/DL; Status: F Lab Order: LIPASE; [facility] 07/07/16 15:46 Test: LIPASE; Value: 283; Range: 73-393; Units: U/L; Status: F Lab Order: LIVER PROFILE; [facility] 07/07/16 15:46 Test: AST/SGOT; Value: 27; Range: 15-37; Units: U/L; Status: F Test: ALT/SGPT; Value: 61; Range: 12-78; Units: U/L; Status: F Test: ALKALINE PHOSPHATASE; Value: 96; Range: 45-117; Units: U/L; Status: F Test: BILIRUBIN,TOTAL; Value: 0.7; Range: 0.2-1.0; Units: MG/DL; Status: F Test: BILIRUBIN,DIRECT; Value: 0.2; Range: 0.0-0.2; Units: MG/DL; Status: F Test: TOTAL PROTEIN; Value: 7.5; Range: 6.4-8.2; Units: GM/DL; Status: F Test: ALBUMIN; Value: 4.0; Range: 3.2-5.2; Units: GM/DL; Status: F Test: ALBUMIN/GLOBULIN RATIO; Value: 1.14; Range: 1.00-1.93; Status: F Radiology Order: CT ABD & PELVIS: No Contrast Test: CT ABD & PELVIS: No Contrast REASON FOR EXAMINATION: RIGHT FLANK PAIN; CT abdomen pelvis without IV or bowel contrast:; ; Comparisons 07/06/2010.; ; The visualized lung peres are unremarkable.; ; There there are multiple cysts in the left hepatic lobe, one in the medial; segment measuring 3.5 cm (2.4 cm previously). There is a second bilobed cyst; measuring 4.6 cm (previously 2.3 cm). A third in the lateral segment measuring; 4.4 cm (previously 2.0 cm).; ; The hepatic parenchyma is otherwise homogeneous and unremarkable.; ; The gallbladder is unremarkable.; ; Pancreas is normal size. There are numerous pancreatic calcifications, as; previously, likely sequela of prior pancreatitis. There is no acute pancreatic; inflammation.; ; Spleen is normal size and homogeneous.; ; The adrenals are unremarkable.; ; There are bilateral renal cortical cysts, all approximately 1 cm in size with the; exception of a large cyst at the lower pole of the left kidney measuring 7.6 cm; (7.3 cm previously).; ; No renal collecting system calculi are identified. There are vascular; atheromatous calcifications in the right kidney.; ; There are no ureteral calculi.; ; There is no right hydroureter. There is mild left hydroureter, unchanged. 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 This is unchanged.; ; There is an infrarenal abdominal aortic aneurysm measuring 4.1 x 3.4 cm. There; is no periaortic or retroperitoneal hematoma.; ; No bowel distension. Mesentery is unremarkable.; ; ; ; Pelvis:; ; The appendix has a normal appearance. There is no ascites or adenopathy. There; are occasional diverticula in the sigmoid colon. No CT evidence of; diverticulitis.; ; Impression:; ; Ureterocele in the bladder on the left. Mild left hydroureter. No left renal; ureteral calculi.; ; There is no hydronephrosis or hydroureter on the right. There are no right renal; pelvis or ureteral calculi. There are right renal parenchymal calcifications,; likely vascular atheroma.; ; There are bilateral renal cortical cysts, largest in the lower pole left kidney.; ; There are pancreatic calcifications, likely sequela of prior pancreatitis.; ; There are hepatic cysts as described.; ; There is an infrarenal abdominal aortic aneurysm measuring 4.1 x 3.4 cm. There; is no periaortic or retroperitoneal hematoma.; ; ; Signed by; Justice Blanco MD 07/07/2016 04:18 P; Radiology Order: US Abd Limited Test: US Abd Limited REASON FOR EXAMINATION: Biliary Colic; Clinical: Biliary colic.; ; Technique: Real time ware scale ultrasound examination using curved array; transducer.; ; Findings:; The gallbladder is normal without gallstones, wall thickening, or pericholecystic; fluid. No biliary ductal dilatation is appreciated and the common bile duct; measures 4.1 mm diameter. Pancreas demonstrates scattered calcifications; consistent with chronic pancreatitis. Liver demonstrates fatty infiltration; along with three left lobe cysts measuring 3.6 cm, 4.6 cm, and 3.3 cm maximal; diameter each. Right kidney is normal in reniform shape without hydronephrosis; and demonstrates few cysts measuring up to approximately 2 cm.; ; Impression:; 1. Normal gallbladder and biliary system.; 2. Hepatic and renal cysts.; 3. Evidence for chronic pancreatitis.; ; ; Signed by; Karlos Mullen MD 07/07/2016 05:08 P; Outcome: 17:37 Discharge ordered by Provider. dt4 18:03 Discharge Assessment: patient administered narcotics - yes. Pt provided with safe jjr discharge. The following High Risk Discharge criteria are identified: None. Discharged to home ambulatory, with significant other. Condition: stable. Discharge instructions given to patient, Instructed on discharge instructions, follow up and referral plans. Demonstrated understanding of instructions. CT Study completed. Ultrasound Study completed. Property sent home with patient. 18:03 Patient left the ED. jjr Signatures: Dispatcher [employer] EDMS Minna Mukherjee, RN RN Eliana Cleaning, AIR ROUTE CONTROLLER AIR ROUTE CONTROLLER jam1 Patricia Feliciano RN RN zafar Holguin, Yeison hgl Bg Feliciano gr2 Alma Tyler RN RN mkMallika Good, PACrys PAJulietC dt4 Lois Paul, Reg Reg ks16 Julita Lewis Chart Complete MTDD
--- NOTE | 2016-07-11 14:12 | EDDOCDS ---
Physician Documentation [facility] Name: Shiraz Clemente Age: 61 yrs Sex: Male : 1955 Arrival Date: 07/07/2016 Time: 14:43 Bed I4 / M4 Private MD: Jb Bhat P. Disposition: 07/07/16 17:37 Discharged to Home/Self Care. Impression: Other abdominal pain - RUQ, RIGHT FLANK PAIN, Abdominal aortic aneurysm, without rupture - INFRARENAL. - Condition is Stable. - Discharge Instructions: Abdominal Aortic Aneurysm, Abdominal Pain, Adult. - Medication Reconciliation, Local Pharmacy Hours form. - Follow up: Emergency Department; When: As needed; Reason: Worsening of conditions. Follow up: Jb Bhat; When: 2 - 3 days; Reason: Wound/Symptom Recheck, Recheck today's complaints, Continuance of care. - Problem is new. - Symptoms have improved. Historical: - Allergies: No known drug Allergies; - Home Meds: 1. Vitamin D Oral 2000 units daily (Last dose: 07/07/2016 06:00) 2. aspirin 81 mg Oral tab 1 tab once daily (Last dose: 07/07/2016 06:00) 3. amlodipine 10 mg Oral tab 1 tab nightly (Last dose: 07/06/2016) 4. atenolol 50 mg Oral tab 1 tab once daily (Last dose: 07/07/2016 06:00) 5. atorvastatin 40 mg oral tab 1 tab once daily (Last dose: 07/07/2016 06:00) 6. metformin 500 mg Oral tr24 1 tab twice a day (Last dose: 07/06/2016) 7. lisinopril 10 mg Oral tab 1 tab once daily (Last dose: 07/07/2016 06:00) - PMHx: Hypercholesterolemia; Hypertension; Diabetes - NIDDM: controlled; - PSHx: left knee surgery for ruptured patellar tendon; - Social history: Smoking status: Patient uses tobacco products, heavy tobacco smoker. No barriers to communication noted, The patient speaks fluent Danish. - : The pt / caregiver states he / she is not on anticoagulants. Home medication list is obtained from the patient. - Exposure Risk Screening:: None identified. Vital Signs: 07/07 14:45 BP 158 / 85; Pulse 61; Resp 18 S; Temp 97.9(O); Pulse Ox 99% on R/A; Weight 91.17 kg / gr2 201 lbs (R); Height 5 ft. 10 in. (177.80 cm) (R); Pain 7/10; 16:26 BP 129 / 69; Pulse 54; Resp 18; Pulse Ox 95% on R/A; Pain 4/10; jjr 17:38 BP 127 / 76; Pulse 54; Resp 18; Temp 98.0; Pulse Ox 95% ; Pain 8/10; jam1 14:45 Body Mass Index 28.84 (91.17 kg, 177.80 cm) gr2 MDM: 15:08 UA Ordered. EDMS 15:20 IV Saline Lock ordered. dt4 15:20 NS 0.9% 500 ml IV at bolus once ordered. dt4 15:20 morphine 2 mg IVP once ordered. dt4 15:21 CT ABD & PELVIS: No Contrast Ordered. EDMS 15:21 CBC with Diff Ordered. EDMS 15:21 Basic Metabolic Profile Ordered. EDMS 15:21 CRP Ordered. EDMS 15:47 LIPASE Ordered. EDMS 15:47 LIVER PROFILE Ordered. EDMS 15:48 Ondansetron 4 mg IVP once ordered. dt4 15:51 Financial registration complete. [email or web address] 16:00 [facility] Payment Agreement was scanned into [email or web address] and attached to record. ks16 16:28 [place] Abd Limited Ordered. EDMS 07/08 18:52 T-Sheet-- Draft Copy was scanned into [email or web address] and attached to record. klr Administered Medications: 07/07 15:53 Drug: NS 0.9% 500 ml [sodium chloride 0.9 % intravenous solution] Route: IV; Rate: jjr bolus; Site: right antecubital; 16:46 Follow up: IV Status: Completed infusion; IV Intake: 500ml jjr 15:53 Drug: morphine 2 mg [morphine 2 mg/mL intravenous cartridge (1 mL)] Route: IVP; Site: jjr right antecubital; 16:26 Follow up: BP 129 / 69; Pulse 54 bpm; Resp 18 bpm; Pulse Ox 95% RA; Pain 4/10 Adult jjr 15:53 Drug: Ondansetron 4 mg [ondansetron HCl 2 mg/mL intravenous solution (2 mL)] Route: jjr IVP; Site: right antecubital; Addendum: 07/11/2016 14:11 Radiology Callback: Radiology results faxed to primary care physician/provider. Dr. gaye Bhat. Signatures: Dispatcher [employer] EDMS Ashley Douglas MD MD sd1 Minna Mukherjee RN RN Patricia Corona RN RN Mallika Tinsley PA-C PA-C dt4 Lois Paul, Reg Reg ks16 Julita Lewis The chart was reviewed and I authenticate all verbal orders and agree with the evaluation and treatment provided.Corrections: (The following items were deleted from the chart) 07/07 15:45 15:21 LIVER PROFILE+LAB ordered. EDMS EDMS 15:45 15:21 LIPASE+LAB ordered. EDMS EDMS Attachments: 16:00 [facility] Payment Agreement [email or web address] 07/08 18:52 T-Sheet-- Draft Copy klr MTDD
--- NOTE | 2016-07-11 14:12 | EDDOCDS ---
Physician Documentation [facility] Name: Shiraz Clemente Age: 61 yrs Sex: Male : 1955 Arrival Date: 07/07/2016 Time: 14:43 Bed I4 / M4 Private MD: Jb Bhat P. Disposition: 07/07/16 17:37 Discharged to Home/Self Care. Impression: Other abdominal pain - RUQ, RIGHT FLANK PAIN, Abdominal aortic aneurysm, without rupture - INFRARENAL. - Condition is Stable. - Discharge Instructions: Abdominal Aortic Aneurysm, Abdominal Pain, Adult. - Medication Reconciliation, Local Pharmacy Hours form. - Follow up: Emergency Department; When: As needed; Reason: Worsening of conditions. Follow up: Jb Bhat; When: 2 - 3 days; Reason: Wound/Symptom Recheck, Recheck today's complaints, Continuance of care. - Problem is new. - Symptoms have improved. Historical: - Allergies: No known drug Allergies; - Home Meds: 1. Vitamin D Oral 2000 units daily (Last dose: 07/07/2016 06:00) 2. aspirin 81 mg Oral tab 1 tab once daily (Last dose: 07/07/2016 06:00) 3. amlodipine 10 mg Oral tab 1 tab nightly (Last dose: 07/06/2016) 4. atenolol 50 mg Oral tab 1 tab once daily (Last dose: 07/07/2016 06:00) 5. atorvastatin 40 mg oral tab 1 tab once daily (Last dose: 07/07/2016 06:00) 6. metformin 500 mg Oral tr24 1 tab twice a day (Last dose: 07/06/2016) 7. lisinopril 10 mg Oral tab 1 tab once daily (Last dose: 07/07/2016 06:00) - PMHx: Hypercholesterolemia; Hypertension; Diabetes - NIDDM: controlled; - PSHx: left knee surgery for ruptured patellar tendon; - Social history: Smoking status: Patient uses tobacco products, heavy tobacco smoker. No barriers to communication noted, The patient speaks fluent Turkmen. - : The pt / caregiver states he / she is not on anticoagulants. Home medication list is obtained from the patient. - Exposure Risk Screening:: None identified. Vital Signs: 07/07 14:45 BP 158 / 85; Pulse 61; Resp 18 S; Temp 97.9(O); Pulse Ox 99% on R/A; Weight 91.17 kg / gr2 201 lbs (R); Height 5 ft. 10 in. (177.80 cm) (R); Pain 7/10; 16:26 BP 129 / 69; Pulse 54; Resp 18; Pulse Ox 95% on R/A; Pain 4/10; jjr 17:38 BP 127 / 76; Pulse 54; Resp 18; Temp 98.0; Pulse Ox 95% ; Pain 8/10; jam1 14:45 Body Mass Index 28.84 (91.17 kg, 177.80 cm) gr2 MDM: 15:08 UA Ordered. EDMS 15:20 IV Saline Lock ordered. dt4 15:20 NS 0.9% 500 ml IV at bolus once ordered. dt4 15:20 morphine 2 mg IVP once ordered. dt4 15:21 CT ABD & PELVIS: No Contrast Ordered. EDMS 15:21 CBC with Diff Ordered. EDMS 15:21 Basic Metabolic Profile Ordered. EDMS 15:21 CRP Ordered. EDMS 15:47 LIPASE Ordered. EDMS 15:47 LIVER PROFILE Ordered. EDMS 15:48 Ondansetron 4 mg IVP once ordered. dt4 15:51 Financial registration complete. [email or web address] 16:00 [facility] Payment Agreement was scanned into [employer] and attached to record. ks16 16:28 [place] Abd Limited Ordered. EDMS 07/08 18:52 T-Sheet-- Draft Copy was scanned into [employer] and attached to record. klr Administered Medications: 07/07 15:53 Drug: NS 0.9% 500 ml [sodium chloride 0.9 % intravenous solution] Route: IV; Rate: jjr bolus; Site: right antecubital; 16:46 Follow up: IV Status: Completed infusion; IV Intake: 500ml jjr 15:53 Drug: morphine 2 mg [morphine 2 mg/mL intravenous cartridge (1 mL)] Route: IVP; Site: jjr right antecubital; 16:26 Follow up: BP 129 / 69; Pulse 54 bpm; Resp 18 bpm; Pulse Ox 95% RA; Pain 4/10 Adult jjr 15:53 Drug: Ondansetron 4 mg [ondansetron HCl 2 mg/mL intravenous solution (2 mL)] Route: jjr IVP; Site: right antecubital; Addendum: 07/11/2016 14:11 Radiology Callback: Radiology results faxed to primary care physician/provider. Dr. gaye Bhat. Signatures: Dispatcher [employer] EDMS Ashley Douglas MD MD sd1 Minna Mukherjee RN RN Patricia Corona RN RN Mallika Tinsley PA-C PA-C dt4 Lois Paul, Reg Reg ks16 Julita Lewis The chart was reviewed and I authenticate all verbal orders and agree with the evaluation and treatment provided.Corrections: (The following items were deleted from the chart) 07/07 15:45 15:21 LIVER PROFILE+LAB ordered. EDMS EDMS 15:45 15:21 LIPASE+LAB ordered. EDMS EDMS Attachments: 16:00 [facility] Payment Agreement [email or web address] 07/08 18:52 T-Sheet-- Draft Copy klr MTDD
--- NOTE | 2016-07-11 14:13 | EDDOCDS ---
Physician Documentation [facility] Name: Shiraz Clemente Age: 61 yrs Sex: Male : 1955 Arrival Date: 07/07/2016 Time: 14:43 Bed I4 / M4 Private MD: Jb Bhat P. Disposition: 07/07/16 17:37 Discharged to Home/Self Care. Impression: Other abdominal pain - RUQ, RIGHT FLANK PAIN, Abdominal aortic aneurysm, without rupture - INFRARENAL. - Condition is Stable. - Discharge Instructions: Abdominal Aortic Aneurysm, Abdominal Pain, Adult. - Medication Reconciliation, Local Pharmacy Hours form. - Follow up: Emergency Department; When: As needed; Reason: Worsening of conditions. Follow up: Jb Bhat; When: 2 - 3 days; Reason: Wound/Symptom Recheck, Recheck today's complaints, Continuance of care. - Problem is new. - Symptoms have improved. Historical: - Allergies: No known drug Allergies; - Home Meds: 1. Vitamin D Oral 2000 units daily (Last dose: 07/07/2016 06:00) 2. aspirin 81 mg Oral tab 1 tab once daily (Last dose: 07/07/2016 06:00) 3. amlodipine 10 mg Oral tab 1 tab nightly (Last dose: 07/06/2016) 4. atenolol 50 mg Oral tab 1 tab once daily (Last dose: 07/07/2016 06:00) 5. atorvastatin 40 mg oral tab 1 tab once daily (Last dose: 07/07/2016 06:00) 6. metformin 500 mg Oral tr24 1 tab twice a day (Last dose: 07/06/2016) 7. lisinopril 10 mg Oral tab 1 tab once daily (Last dose: 07/07/2016 06:00) - PMHx: Hypercholesterolemia; Hypertension; Diabetes - NIDDM: controlled; - PSHx: left knee surgery for ruptured patellar tendon; - Social history: Smoking status: Patient uses tobacco products, heavy tobacco smoker. No barriers to communication noted, The patient speaks fluent Frisian. - : The pt / caregiver states he / she is not on anticoagulants. Home medication list is obtained from the patient. - Exposure Risk Screening:: None identified. Vital Signs: 07/07 14:45 BP 158 / 85; Pulse 61; Resp 18 S; Temp 97.9(O); Pulse Ox 99% on R/A; Weight 91.17 kg / gr2 201 lbs (R); Height 5 ft. 10 in. (177.80 cm) (R); Pain 7/10; 16:26 BP 129 / 69; Pulse 54; Resp 18; Pulse Ox 95% on R/A; Pain 4/10; jjr 17:38 BP 127 / 76; Pulse 54; Resp 18; Temp 98.0; Pulse Ox 95% ; Pain 8/10; jam1 14:45 Body Mass Index 28.84 (91.17 kg, 177.80 cm) gr2 MDM: 15:08 UA Ordered. EDMS 15:20 IV Saline Lock ordered. dt4 15:20 NS 0.9% 500 ml IV at bolus once ordered. dt4 15:20 morphine 2 mg IVP once ordered. dt4 15:21 CT ABD & PELVIS: No Contrast Ordered. EDMS 15:21 CBC with Diff Ordered. EDMS 15:21 Basic Metabolic Profile Ordered. EDMS 15:21 CRP Ordered. EDMS 15:47 LIPASE Ordered. EDMS 15:47 LIVER PROFILE Ordered. EDMS 15:48 Ondansetron 4 mg IVP once ordered. dt4 15:51 Financial registration complete. [email or web address] 16:00 [facility] Payment Agreement was scanned into [employer] and attached to record. [email or web address] 16:28 [place] Abd Limited Ordered. EDMS 07/08 18:52 T-Sheet-- Draft Copy was scanned into [employer] and attached to record. klr Administered Medications: 07/07 15:53 Drug: NS 0.9% 500 ml [sodium chloride 0.9 % intravenous solution] Route: IV; Rate: jjr bolus; Site: right antecubital; 16:46 Follow up: IV Status: Completed infusion; IV Intake: 500ml jjr 15:53 Drug: morphine 2 mg [morphine 2 mg/mL intravenous cartridge (1 mL)] Route: IVP; Site: jjr right antecubital; 16:26 Follow up: BP 129 / 69; Pulse 54 bpm; Resp 18 bpm; Pulse Ox 95% RA; Pain 4/10 Adult jjr 15:53 Drug: Ondansetron 4 mg [ondansetron HCl 2 mg/mL intravenous solution (2 mL)] Route: jjr IVP; Site: right antecubital; Addendum: 07/11/2016 14:11 Radiology Callback: Radiology results faxed to primary care physician/provider. Dr. gaye Bhat. Signatures: Dispatcher [employer] EDMS Ashley Douglas MD MD sd1 Minna Mukherjee RN RN Patricia Corona RN RN Mallika Tinsley PA-C PA-C dt4 Lois Paul, Reg Reg ks16 Julita Lewis The chart was reviewed and I authenticate all verbal orders and agree with the evaluation and treatment provided.Corrections: (The following items were deleted from the chart) 07/07 15:45 15:21 LIVER PROFILE+LAB ordered. EDMS EDMS 15:45 15:21 LIPASE+LAB ordered. EDMS EDMS Attachments: 16:00 [facility] Payment Agreement [email or web address] 07/08 18:52 T-Sheet-- Draft Copy klr Chart Complete MTDD
--- NOTE | 2016-07-11 14:13 | EDDOCDS ---
Nurse's Notes [facility] Name: Shiraz Clemente Age: 61 yrs Sex: Male : 1955 Arrival Date: 07/07/2016 Time: 14:43 Bed I4 / M4 Private MD: Jb Bhat P. Diagnosis: Other abdominal pain-RUQ, RIGHT FLANK PAIN;Abdominal aortic aneurysm, without rupture-INFRARENAL Presentation: 07/07 14:55 Presenting complaint: Patient states: right flank pain radiating to abdomen since [facility] yesterday, Sent from Dr Bhat's office. Acute neurological deficits are not present. Mechanism of Injury: No Mechanism of Injury. Adult Sepsis Screening: The patient does not have new or worsening altered mentation. Patient's respiratory rate is less than 22. Systolic blood pressure is greater than 100. Patient has a qSOFA score of 0- Negative Sepsis Screen. Suicide/Homicide risk assessment- the patient denies having any suicidal and/or homicidal ideations and does not present with any other emotional, behavioral or mental health complaints. Status: Patient is not a animal services officer or dependent. Transition of care: patient was received from a primary care office; Dr Bhat's office. 14:55 Acuity: DELFIN Level 3 [facility] 14:55 Method Of Arrival: Walkin/Carried/Asstd [facility] Triage Assessment: 15:01 General: Appears in no apparent distress, well nourished, well groomed, Behavior is j appropriate for age, pleasant. Pain: Location: right flank Pain currently is 5 out of 10 on a pain scale. Pain radiates to right lower quadrant. Pt Declines HIV testing. Neurological: Level of Consciousness is awake, alert, Oriented to person, place, time. Respiratory: Airway is patent Respiratory effort is even, unlabored, Respiratory pattern is regular, symmetrical. GI: Denies nausea, vomiting. : Reports pain in right flank(s) Pain is 5 out of 10 on a pain scale. Derm: Skin is pink, warm & dry. Musculoskeletal: Reports pain in right flank Pain is 5 out of 10 on a pain scale. Historical: - Allergies: No known drug Allergies; - Home Meds: 1. Vitamin D Oral 2000 units daily (Last dose: 07/07/2016 06:00) 2. aspirin 81 mg Oral tab 1 tab once daily (Last dose: 07/07/2016 06:00) 3. amlodipine 10 mg Oral tab 1 tab nightly (Last dose: 07/06/2016) 4. atenolol 50 mg Oral tab 1 tab once daily (Last dose: 07/07/2016 06:00) 5. atorvastatin 40 mg oral tab 1 tab once daily (Last dose: 07/07/2016 06:00) 6. metformin 500 mg Oral tr24 1 tab twice a day (Last dose: 07/06/2016) 7. lisinopril 10 mg Oral tab 1 tab once daily (Last dose: 07/07/2016 06:00) - PMHx: Hypercholesterolemia; Hypertension; Diabetes - NIDDM: controlled; - PSHx: left knee surgery for ruptured patellar tendon; - Social history: Smoking status: Patient uses tobacco products, heavy tobacco smoker. No barriers to communication noted, The patient speaks fluent [place]. - : The pt / caregiver states he / she is not on anticoagulants. Home medication list is obtained from the patient. - Exposure Risk Screening:: None identified. Screenin:35 Screening information is obtained from the patient. Primary language is [place]. Fall jam1 risk: No risks identified. Assistance ADL's: requires no assistance with activities of daily living. Abuse/DV Screen: The patient / caregiver reports he/she is: not in a situation that causes fear, pain or injury. Nutritional screening: No deficits noted. Exposure Risk Screening: None identified. Advance Directives: Currently, there is a health care proxy, lana block friend. There is no active DNR order. There is no living will. There is an active Power of Surveyor Rod Helper, geovanna block friend. Advance directive information has not previously been placed in an [facility] medical record. Further advance directive information is declined. home support is adequate. Assessment: 15:54 General: Appears in no apparent distress, well nourished, well groomed, Behavior is jjr appropriate for age. Pain: Location: posterior aspect of right lateral abdomen Pain radiates to right low back, right lower quadrant and groin Pain began 1 day ago Aggravated by lying supine and activity. Neurological: No deficits noted. Respiratory: No deficits noted. GI: Abdomen is non- distended Bowel sounds present X 4 quads. Abd is soft X 4 quads Abd is tender to palpation in posterior aspect of right lateral abdomen and right lower quadrant. : Denies pain with urination urinary frequency, urgency. Derm: No deficits noted. 16:27 General: Appears in no apparent distress, reports less pain with movement than jjr experienced earlier, pain remains the worst to right lateral abdomen. 18:02 General: Appears in no apparent distress, continues to report pain to right lateral jjr abdomen radiating to right low back and RLQ. Vital Signs: 14:45 BP 158 / 85; Pulse 61; Resp 18 S; Temp 97.9(O); Pulse Ox 99% on R/A; Weight 91.17 kg gr2 (R); Height 5 ft. 10 in. (177.80 cm) (R); Pain 7/10; 16:26 BP 129 / 69; Pulse 54; Resp 18; Pulse Ox 95% on R/A; Pain 4/10; jjr 17:38 BP 127 / 76; Pulse 54; Resp 18; Temp 98.0; Pulse Ox 95% ; Pain 8/10; jam1 14:45 Body Mass Index 28.84 (91.17 kg, 177.80 cm) gr2 Vitals: 14:45 Log In Time: July 07, 2016 at 14:45. gr2 ED Course: 14:45 Patient visited by Bg Feliciano. gr2 14:45 Jb Bhat is Private Physician. gr2 14:45 Patient moved to Waiting gr2 14:46 Patient visited by Bg Feliciano. gr2 14:46 Patient moved to Pre RCE gr2 14:57 Triage Initiated kp 15:03 Patient moved to Triage 3 [facility] 15:04 Mallika Chaudhari [facility]-C [facility]. dt4 15:04 Carroll Smith MD is Attending Physician. dt4 15:05 Patient visited by Mallika Chaudhari PA-C. dt4 15:21 Patient moved to I4 / M4 jr 15:35 Pt greeted and oriented to ED. Patient advised of names of staff involved in care, jam1 location of call rivera, wait times and NPO status. Patient has correct armband on for positive identification. Placed in gown. Bed in low position. Call light in reach. Side rails up X 1. Adult w/ patient. Door closed. 15:55 Patient visited by Patricia Feliciano RN. jjr 15:55 The patient / caregiver is instructed regarding the plan of care and ED course. jjr 15:55 Inserted saline lock: 20 gauge in right antecubital area and blood collected. by Edel stephen RN. 16:00 [facility] Payment Agreement was scanned into redealize and attached to record. ks16 16:28 Patient visited by Patricia Feliciano RN. jjr 16:34 Patient visited by Mallika Chaudhari PA-C. dt4 16:35 Patient moved to Ultrasound hgl 16:47 CT ABD & PELVIS: No Contrast Returned. EDMS 16:52 Patient moved to I4 / M4 hgl 17:32 Patient visited by Alma Tyler RN. mk4 17:35 Jb Bhat is Referral Physician. dt4 17:45 US Abd Limited Returned. EDMS 18:02 Discontinued lock intact, bleeding controlled, pressure dressing applied, No jjr redness/swelling at site. No procedures done that require assistance. 07/08 18:52 T-Sheet-- Draft Copy was scanned into redealize and attached to record. klr Administered Medications: 07/07 15:53 Drug: NS 0.9% 500 ml [sodium chloride 0.9 % intravenous solution] Route: IV; Rate: jjr bolus; Site: right antecubital; 16:46 Follow up: IV Status: Completed infusion; IV Intake: 500ml jjr 15:53 Drug: morphine 2 mg [morphine 2 mg/mL intravenous cartridge (1 mL)] Route: IVP; Site: jjr right antecubital; 16:26 Follow up: BP 129 / 69; Pulse 54 bpm; Resp 18 bpm; Pulse Ox 95% RA; Pain 4/10 Adult jjr 15:53 Drug: Ondansetron 4 mg [ondansetron HCl 2 mg/mL intravenous solution (2 mL)] Route: jjr IVP; Site: right antecubital; Intake: 16:46 IV: 500.00ml; Total: 500.00ml. jjr Order Results: Lab Order: UA; SPEC'M 07/07/16 15:12 Test: APPEARANCE, URINE; Value: CLEAR; Range: CLEAR; Status: F Test: COLOR, URINE; Value: STRAW; Range: YELLOW; Status: F Test: PH,URINE; Value: 5.0; Range: 5.0-9.0; Units: UNITS; Status: F Test: SPECIFIC GRAVITY URINE AUTO; Value: 1.006; Range: 1.002-1.035; Status: F Test: PROTEIN, URINE AUTO; Value: NEGATIVE; Range: NEGATIVE; Units: mg/dL; Status: F Test: GLUCOSE, URINE (UA) AUTO; Value: NEGATIVE; Range: NEGATIVE; Units: mg/dL; Status: F Test: KETONE, URINE AUTO; Value: NEGATIVE; Range: NEGATIVE; Units: mg/dL; Status: F Test: UROBILINOGEN, URINE AUTO; Value: 0.2; Range: 0.0-2.0; Units: mg/dL; Status: F Test: BILIRUBIN, URINE AUTO; Value: NEGATIVE; Range: NEGATIVE; Status: F Test: NITRITE, URINE AUTO; Value: NEGATIVE; Range: NEGATIVE; Status: F Test: LEUKOCYTE ESTERASE, URINE AUTO; Value: NEGATIVE; Range: NEGATIVE; Status: F Test: BLOOD, URINE BLOOD; Value: NEGATIVE; Range: NEGATIVE; Status: F Test: WBC, URINE AUTO; Value: 0; Range: 0-3; Units: /HPF; Status: F Test: RBC, URINE AUTO; Value: 1; Range: 0-3; Units: /HPF; Status: F Test: BACTERIA, URINE AUTO; Value: NEGATIVE; Range: NEGATIVE; Status: F Test: SQUAMOUS EPITHELIAL CELL UR AU; Value: 0; Range: 0-6; Units: /HPF; Status: F Test: MUCUS, URINE; Value: SMALL; Range: NEGATIVE; Status: F Test: HYALINE CAST, URINE AUTO; Value: 0; Range: 0-1; Units: /LPF; Status: F Lab Order: CBC with Diff; SPEC'M 07/07/16 15:46 Test: WHITE BLOOD COUNT; Value: 7.4; Range: 4.0-10.0; Units: K/mm3; Status: F Test: RED BLOOD COUNT; Value: 5.47; Range: 4.30-6.10; Units: M/mm3; Status: F Test: HEMOGLOBIN; Value: 17.8; Range: 14.0-18.0; Units: g/dl; Status: F Test: HEMATOCRIT; Value: 51.3; Range: 42.0-52.0; Units: %; Status: F Test: MEAN CORPUSCULAR VOLUME; Value: 93.8; Range: 80.0-96.0; Units: fl; Status: F Test: MEAN CORPUSCULAR HEMOGLOBIN; Value: 32.5; Range: 27.0-33.0; Units: pg; Status: F Test: MEAN CORPUSCULAR HGB CONC; Value: 34.6; Range: 32.0-36.5; Units: g/dl; Status: F Test: RED CELL DISTRIBUTION WIDTH; Value: 12.0; Range: 11.5-14.5; Units: %; Status: F Test: PLATELET COUNT, AUTOMATED; Value: 170; Range: 150-450; Units: k/mm3; Status: F Test: NEUTROPHILS %; Value: 59.8; Range: 36.0-66.0; Units: %; Status: F Test: LYMPH %; Value: 26.5; Range: 24.0-44.0; Units: %; Status: F Test: MONO %; Value: 7.5; Range: 0.0-5.0; Abnormal: Above high normal; Units: %; Status: F Test: EOS %; Value: 4.1; Range: 0.0-3.0; Abnormal: Above high normal; Units: %; Status: F Test: BASO %; Value: 0.9; Range: 0.0-1.0; Units: %; Status: F Test: LARGE UNSTAINED CELL %; Value: 1.3; Range: 0.0-4.0; Units: %; Status: F Test: NEUTROPHILS #; Value: 4.4; Range: 1.8-7.7; Units: K/mm3; Status: F Test: LYMPH #; Value: 2.0; Range: 1.5-4.5; Units: K/mm3; Status: F Test: MONO #; Value: 0.6; Range: 0.0-0.8; Units: K/mm3; Status: F Test: EOS #; Value: 0.3; Range: 0.0-0.50; Units: K/mm3; Status: F Test: BASO #; Value: 0.1; Range: 0.0-0.2; Units: K/mm3; Status: F Test: LARGE UNSTAINED CELL #; Value: 0.1; Range: 0.0-0.4; Units: K/mm3; Status: F Lab Order: Basic Metabolic Profile; [facility] 07/07/16 15:46 Test: GLUCOSE, FASTING; Value: 85; Range: 80-110; Units: MG/DL; Status: F Test: BLOOD UREA NITROGEN; Value: 15; Range: 7-18; Units: MG/DL; Status: F Test: CREATININE FOR GFR; Value: 0.79; Range: 0.70-1.30; Units: MG/DL; Status: F Test: GLOMERULAR FILTRATION RATE; Value: > 60.0; Range: >49; Status: F Test: SODIUM LEVEL; Value: 141; Range: 136-145; Units: MEQ/L; Status: F Test: POTASSIUM SERUM; Value: 3.9; Range: 3.5-5.1; Units: MEQ/L; Status: F Test: CHLORIDE LEVEL; Value: 108; Range: 98-107; Abnormal: Above high normal; Units: MEQ/L; Status: F Test: CARBON DIOXIDE LEVEL; Value: 26; Range: 21-32; Units: MEQ/L; Status: F Test: ANION GAP; Value: 7; Range: 8-16; Abnormal: Below low normal; Units: MEQ/L; Status: F Test: CALCIUM LEVEL; Value: 9.2; Range: 8.8-10.2; Units: MG/DL; Status: F Test Note: ; Units are mL/min/1.73 m2 Chronic Kidney Disease Staging per NKF: Stage I & II GFR >=60 Normal to Mildly Decreased Stage III GFR 30-59 Moderately Decreased Stage IV GFR 15-29 Severely Decreased Stage V GFR <15 Very Little GFR Left ESRD GFR <15 on [employer] VENDOR Lab Order: CRP; [facility] 07/07/16 15:46 Test: C REACTIVE PROTEIN QUANTITATIV; Value: 0.42; Range: 0.00-0.30; Abnormal: Above high normal; Units: MG/DL; Status: F Lab Order: LIPASE; [facility] 07/07/16 15:46 Test: LIPASE; Value: 283; Range: 73-393; Units: U/L; Status: F Lab Order: LIVER PROFILE; [facility] 07/07/16 15:46 Test: AST/SGOT; Value: 27; Range: 15-37; Units: U/L; Status: F Test: ALT/SGPT; Value: 61; Range: 12-78; Units: U/L; Status: F Test: ALKALINE PHOSPHATASE; Value: 96; Range: 45-117; Units: U/L; Status: F Test: BILIRUBIN,TOTAL; Value: 0.7; Range: 0.2-1.0; Units: MG/DL; Status: F Test: BILIRUBIN,DIRECT; Value: 0.2; Range: 0.0-0.2; Units: MG/DL; Status: F Test: TOTAL PROTEIN; Value: 7.5; Range: 6.4-8.2; Units: GM/DL; Status: F Test: ALBUMIN; Value: 4.0; Range: 3.2-5.2; Units: GM/DL; Status: F Test: ALBUMIN/GLOBULIN RATIO; Value: 1.14; Range: 1.00-1.93; Status: F Radiology Order: CT ABD & PELVIS: No Contrast Test: CT ABD & PELVIS: No Contrast REASON FOR EXAMINATION: RIGHT FLANK PAIN; CT abdomen pelvis without IV or bowel contrast:; ; Comparisons 07/06/2010.; ; The visualized lung peres are unremarkable.; ; There there are multiple cysts in the left hepatic lobe, one in the medial; segment measuring 3.5 cm (2.4 cm previously). There is a second bilobed cyst; measuring 4.6 cm (previously 2.3 cm). A third in the lateral segment measuring; 4.4 cm (previously 2.0 cm).; ; The hepatic parenchyma is otherwise homogeneous and unremarkable.; ; The gallbladder is unremarkable.; ; Pancreas is normal size. There are numerous pancreatic calcifications, as; previously, likely sequela of prior pancreatitis. There is no acute pancreatic; inflammation.; ; Spleen is normal size and homogeneous.; ; The adrenals are unremarkable.; ; There are bilateral renal cortical cysts, all approximately 1 cm in size with the; exception of a large cyst at the lower pole of the left kidney measuring 7.6 cm; (7.3 cm previously).; ; No renal collecting system calculi are identified. There are vascular; atheromatous calcifications in the right kidney.; ; There are no ureteral calculi.; ; There is no right hydroureter. There is mild left hydroureter, unchanged. 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 This is unchanged.; ; There is an infrarenal abdominal aortic aneurysm measuring 4.1 x 3.4 cm. There; is no periaortic or retroperitoneal hematoma.; ; No bowel distension. Mesentery is unremarkable.; ; ; ; Pelvis:; ; The appendix has a normal appearance. There is no ascites or adenopathy. There; are occasional diverticula in the sigmoid colon. No CT evidence of; diverticulitis.; ; Impression:; ; Ureterocele in the bladder on the left. Mild left hydroureter. No left renal; ureteral calculi.; ; There is no hydronephrosis or hydroureter on the right. There are no right renal; pelvis or ureteral calculi. There are right renal parenchymal calcifications,; likely vascular atheroma.; ; There are bilateral renal cortical cysts, largest in the lower pole left kidney.; ; There are pancreatic calcifications, likely sequela of prior pancreatitis.; ; There are hepatic cysts as described.; ; There is an infrarenal abdominal aortic aneurysm measuring 4.1 x 3.4 cm. There; is no periaortic or retroperitoneal hematoma.; ; ; Signed by; Justice Blanco MD 07/07/2016 04:18 P; Radiology Order: US Abd Limited Test: US Abd Limited REASON FOR EXAMINATION: Biliary Colic; Clinical: Biliary colic.; ; Technique: Real time ware scale ultrasound examination using curved array; transducer.; ; Findings:; The gallbladder is normal without gallstones, wall thickening, or pericholecystic; fluid. No biliary ductal dilatation is appreciated and the common bile duct; measures 4.1 mm diameter. Pancreas demonstrates scattered calcifications; consistent with chronic pancreatitis. Liver demonstrates fatty infiltration; along with three left lobe cysts measuring 3.6 cm, 4.6 cm, and 3.3 cm maximal; diameter each. Right kidney is normal in reniform shape without hydronephrosis; and demonstrates few cysts measuring up to approximately 2 cm.; ; Impression:; 1. Normal gallbladder and biliary system.; 2. Hepatic and renal cysts.; 3. Evidence for chronic pancreatitis.; ; ; Signed by; Karlos Mullen MD 07/07/2016 05:08 P; Outcome: 17:37 Discharge ordered by Provider. dt4 18:03 Discharge Assessment: patient administered narcotics - yes. Pt provided with safe jjr discharge. The following High Risk Discharge criteria are identified: None. Discharged to home ambulatory, with significant other. Condition: stable. Discharge instructions given to patient, Instructed on discharge instructions, follow up and referral plans. Demonstrated understanding of instructions. CT Study completed. Ultrasound Study completed. Property sent home with patient. 18:03 Patient left the ED. jjr Signatures: Dispatcher [employer] EDMS Minna Mukherjee, RN RN Eliana Cleaning, STEM ASSEMBLER STEM ASSEMBLER jam1 Patricia Feliciano RN RN zafar Holguin, Yeison hgl Bg Feliciano gr2 Alma Tyler RN RN mkMallika Good, PACrys PAJulietC dt4 Lois Paul, Reg Reg ks16 Julita Lewis MTDD
--- NOTE | 2016-07-11 14:14 | EDDOCDS ---
Nurse's Notes [facility] Name: Shiraz Clemente Age: 61 yrs Sex: Male : 1955 Arrival Date: 07/07/2016 Time: 14:43 Bed I4 / M4 Private MD: Jb Bhat P. Diagnosis: Other abdominal pain-RUQ, RIGHT FLANK PAIN;Abdominal aortic aneurysm, without rupture-INFRARENAL Presentation: 07/07 14:55 Presenting complaint: Patient states: right flank pain radiating to abdomen since [facility] yesterday, Sent from Dr Bhat's office. Acute neurological deficits are not present. Mechanism of Injury: No Mechanism of Injury. Adult Sepsis Screening: The patient does not have new or worsening altered mentation. Patient's respiratory rate is less than 22. Systolic blood pressure is greater than 100. Patient has a qSOFA score of 0- Negative Sepsis Screen. Suicide/Homicide risk assessment- the patient denies having any suicidal and/or homicidal ideations and does not present with any other emotional, behavioral or mental health complaints. Status: Patient is not a gas refrigerator servicer or dependent. Transition of care: patient was received from a primary care office; Dr Bhat's office. 14:55 Acuity: DELFIN Level 3 [facility] 14:55 Method Of Arrival: Walkin/Carried/Asstd [facility] Triage Assessment: 15:01 General: Appears in no apparent distress, well nourished, well groomed, Behavior is j appropriate for age, pleasant. Pain: Location: right flank Pain currently is 5 out of 10 on a pain scale. Pain radiates to right lower quadrant. Pt Declines HIV testing. Neurological: Level of Consciousness is awake, alert, Oriented to person, place, time. Respiratory: Airway is patent Respiratory effort is even, unlabored, Respiratory pattern is regular, symmetrical. GI: Denies nausea, vomiting. : Reports pain in right flank(s) Pain is 5 out of 10 on a pain scale. Derm: Skin is pink, warm & dry. Musculoskeletal: Reports pain in right flank Pain is 5 out of 10 on a pain scale. Historical: - Allergies: No known drug Allergies; - Home Meds: 1. Vitamin D Oral 2000 units daily (Last dose: 07/07/2016 06:00) 2. aspirin 81 mg Oral tab 1 tab once daily (Last dose: 07/07/2016 06:00) 3. amlodipine 10 mg Oral tab 1 tab nightly (Last dose: 07/06/2016) 4. atenolol 50 mg Oral tab 1 tab once daily (Last dose: 07/07/2016 06:00) 5. atorvastatin 40 mg oral tab 1 tab once daily (Last dose: 07/07/2016 06:00) 6. metformin 500 mg Oral tr24 1 tab twice a day (Last dose: 07/06/2016) 7. lisinopril 10 mg Oral tab 1 tab once daily (Last dose: 07/07/2016 06:00) - PMHx: Hypercholesterolemia; Hypertension; Diabetes - NIDDM: controlled; - PSHx: left knee surgery for ruptured patellar tendon; - Social history: Smoking status: Patient uses tobacco products, heavy tobacco smoker. No barriers to communication noted, The patient speaks fluent Togolese. - : The pt / caregiver states he / she is not on anticoagulants. Home medication list is obtained from the patient. - Exposure Risk Screening:: None identified. Screenin:35 Screening information is obtained from the patient. Primary language is Togolese. Fall jam1 risk: No risks identified. Assistance ADL's: requires no assistance with activities of daily living. Abuse/DV Screen: The patient / caregiver reports he/she is: not in a situation that causes fear, pain or injury. Nutritional screening: No deficits noted. Exposure Risk Screening: None identified. Advance Directives: Currently, there is a health care proxy, lana block friend. There is no active DNR order. There is no living will. There is an active Power of House Calls Nurse Practitioner, geovanna block friend. Advance directive information has not previously been placed in an [facility] medical record. Further advance directive information is declined. home support is adequate. Assessment: 15:54 General: Appears in no apparent distress, well nourished, well groomed, Behavior is jjr appropriate for age. Pain: Location: posterior aspect of right lateral abdomen Pain radiates to right low back, right lower quadrant and groin Pain began 1 day ago Aggravated by lying supine and activity. Neurological: No deficits noted. Respiratory: No deficits noted. GI: Abdomen is non- distended Bowel sounds present X 4 quads. Abd is soft X 4 quads Abd is tender to palpation in posterior aspect of right lateral abdomen and right lower quadrant. : Denies pain with urination urinary frequency, urgency. Derm: No deficits noted. 16:27 General: Appears in no apparent distress, reports less pain with movement than jjr experienced earlier, pain remains the worst to right lateral abdomen. 18:02 General: Appears in no apparent distress, continues to report pain to right lateral jjr abdomen radiating to right low back and RLQ. Vital Signs: 14:45 BP 158 / 85; Pulse 61; Resp 18 S; Temp 97.9(O); Pulse Ox 99% on R/A; Weight 91.17 kg gr2 (R); Height 5 ft. 10 in. (177.80 cm) (R); Pain 7/10; 16:26 BP 129 / 69; Pulse 54; Resp 18; Pulse Ox 95% on R/A; Pain 4/10; jjr 17:38 BP 127 / 76; Pulse 54; Resp 18; Temp 98.0; Pulse Ox 95% ; Pain 8/10; jam1 14:45 Body Mass Index 28.84 (91.17 kg, 177.80 cm) gr2 Vitals: 14:45 Log In Time: July 07, 2016 at 14:45. gr2 ED Course: 14:45 Patient visited by Bg Feliciano. gr2 14:45 Jb Bhat is Private Physician. gr2 14:45 Patient moved to Waiting gr2 14:46 Patient visited by Bg Feliciano. gr2 14:46 Patient moved to Pre RCE gr2 14:57 Triage Initiated kp 15:03 Patient moved to Triage 3 [facility] 15:04 [facility]aud[facility]C [facility] dt4 15:04 Carroll Smith MD is Attending Physician. dt4 15:05 Patient visited by Mallika Chaudhari PA-C. dt4 15:21 Patient moved to I4 / M4 jr 15:35 Pt greeted and oriented to ED. Patient advised of names of staff involved in care, jam1 location of call rivera, wait times and NPO status. Patient has correct armband on for positive identification. Placed in gown. Bed in low position. Call light in reach. Side rails up X 1. Adult w/ patient. Door closed. 15:55 Patient visited by Patricia Feliciano RN. jjr 15:55 The patient / caregiver is instructed regarding the plan of care and ED course. jjr 15:55 Inserted saline lock: 20 gauge in right antecubital area and blood collected. by Edel stephen RN. 16:00 [facility] Payment Agreement was scanned into [employer] and attached to record. ks16 16:28 Patient visited by Patricia Feliciano RN. jjr 16:34 Patient visited by Mallika Chaudhari PA-C. dt4 16:35 Patient moved to Ultrasound hgl 16:47 CT ABD & PELVIS: No Contrast Returned. EDMS 16:52 Patient moved to I4 / M4 hgl 17:32 Patient visited by Alma Tyler RN. mk4 17:35 Jb Bhat is Referral Physician. dt4 17:45 US Abd Limited Returned. EDMS 18:02 Discontinued lock intact, bleeding controlled, pressure dressing applied, No jjr redness/swelling at site. No procedures done that require assistance. 07/08 18:52 T-Sheet-- Draft Copy was scanned into [employer] and attached to record. klr Administered Medications: 07/07 15:53 Drug: NS 0.9% 500 ml [sodium chloride 0.9 % intravenous solution] Route: IV; Rate: jjr bolus; Site: right antecubital; 16:46 Follow up: IV Status: Completed infusion; IV Intake: 500ml jjr 15:53 Drug: morphine 2 mg [morphine 2 mg/mL intravenous cartridge (1 mL)] Route: IVP; Site: jjr right antecubital; 16:26 Follow up: BP 129 / 69; Pulse 54 bpm; Resp 18 bpm; Pulse Ox 95% RA; Pain 4/10 Adult jjr 15:53 Drug: Ondansetron 4 mg [ondansetron HCl 2 mg/mL intravenous solution (2 mL)] Route: jjr IVP; Site: right antecubital; Intake: 16:46 IV: 500.00ml; Total: 500.00ml. jjr Order Results: Lab Order: UA; SPEC'M 07/07/16 15:12 Test: APPEARANCE, URINE; Value: CLEAR; Range: CLEAR; Status: F Test: COLOR, URINE; Value: STRAW; Range: YELLOW; Status: F Test: PH,URINE; Value: 5.0; Range: 5.0-9.0; Units: UNITS; Status: F Test: SPECIFIC GRAVITY URINE AUTO; Value: 1.006; Range: 1.002-1.035; Status: F Test: PROTEIN, URINE AUTO; Value: NEGATIVE; Range: NEGATIVE; Units: mg/dL; Status: F Test: GLUCOSE, URINE (UA) AUTO; Value: NEGATIVE; Range: NEGATIVE; Units: mg/dL; Status: F Test: KETONE, URINE AUTO; Value: NEGATIVE; Range: NEGATIVE; Units: mg/dL; Status: F Test: UROBILINOGEN, URINE AUTO; Value: 0.2; Range: 0.0-2.0; Units: mg/dL; Status: F Test: BILIRUBIN, URINE AUTO; Value: NEGATIVE; Range: NEGATIVE; Status: F Test: NITRITE, URINE AUTO; Value: NEGATIVE; Range: NEGATIVE; Status: F Test: LEUKOCYTE ESTERASE, URINE AUTO; Value: NEGATIVE; Range: NEGATIVE; Status: F Test: BLOOD, URINE BLOOD; Value: NEGATIVE; Range: NEGATIVE; Status: F Test: WBC, URINE AUTO; Value: 0; Range: 0-3; Units: /HPF; Status: F Test: RBC, URINE AUTO; Value: 1; Range: 0-3; Units: /HPF; Status: F Test: BACTERIA, URINE AUTO; Value: NEGATIVE; Range: NEGATIVE; Status: F Test: SQUAMOUS EPITHELIAL CELL UR AU; Value: 0; Range: 0-6; Units: /HPF; Status: F Test: MUCUS, URINE; Value: SMALL; Range: NEGATIVE; Status: F Test: HYALINE CAST, URINE AUTO; Value: 0; Range: 0-1; Units: /LPF; Status: F Lab Order: CBC with Diff; SPEC'M 07/07/16 15:46 Test: WHITE BLOOD COUNT; Value: 7.4; Range: 4.0-10.0; Units: K/mm3; Status: F Test: RED BLOOD COUNT; Value: 5.47; Range: 4.30-6.10; Units: M/mm3; Status: F Test: HEMOGLOBIN; Value: 17.8; Range: 14.0-18.0; Units: g/dl; Status: F Test: HEMATOCRIT; Value: 51.3; Range: 42.0-52.0; Units: %; Status: F Test: MEAN CORPUSCULAR VOLUME; Value: 93.8; Range: 80.0-96.0; Units: fl; Status: F Test: MEAN CORPUSCULAR HEMOGLOBIN; Value: 32.5; Range: 27.0-33.0; Units: pg; Status: F Test: MEAN CORPUSCULAR HGB CONC; Value: 34.6; Range: 32.0-36.5; Units: g/dl; Status: F Test: RED CELL DISTRIBUTION WIDTH; Value: 12.0; Range: 11.5-14.5; Units: %; Status: F Test: PLATELET COUNT, AUTOMATED; Value: 170; Range: 150-450; Units: k/mm3; Status: F Test: NEUTROPHILS %; Value: 59.8; Range: 36.0-66.0; Units: %; Status: F Test: LYMPH %; Value: 26.5; Range: 24.0-44.0; Units: %; Status: F Test: MONO %; Value: 7.5; Range: 0.0-5.0; Abnormal: Above high normal; Units: %; Status: F Test: EOS %; Value: 4.1; Range: 0.0-3.0; Abnormal: Above high normal; Units: %; Status: F Test: BASO %; Value: 0.9; Range: 0.0-1.0; Units: %; Status: F Test: LARGE UNSTAINED CELL %; Value: 1.3; Range: 0.0-4.0; Units: %; Status: F Test: NEUTROPHILS #; Value: 4.4; Range: 1.8-7.7; Units: K/mm3; Status: F Test: LYMPH #; Value: 2.0; Range: 1.5-4.5; Units: K/mm3; Status: F Test: MONO #; Value: 0.6; Range: 0.0-0.8; Units: K/mm3; Status: F Test: EOS #; Value: 0.3; Range: 0.0-0.50; Units: K/mm3; Status: F Test: BASO #; Value: 0.1; Range: 0.0-0.2; Units: K/mm3; Status: F Test: LARGE UNSTAINED CELL #; Value: 0.1; Range: 0.0-0.4; Units: K/mm3; Status: F Lab Order: Basic Metabolic Profile; [facility] 07/07/16 15:46 Test: GLUCOSE, FASTING; Value: 85; Range: 80-110; Units: MG/DL; Status: F Test: BLOOD UREA NITROGEN; Value: 15; Range: 7-18; Units: MG/DL; Status: F Test: CREATININE FOR GFR; Value: 0.79; Range: 0.70-1.30; Units: MG/DL; Status: F Test: GLOMERULAR FILTRATION RATE; Value: > 60.0; Range: >49; Status: F Test: SODIUM LEVEL; Value: 141; Range: 136-145; Units: MEQ/L; Status: F Test: POTASSIUM SERUM; Value: 3.9; Range: 3.5-5.1; Units: MEQ/L; Status: F Test: CHLORIDE LEVEL; Value: 108; Range: 98-107; Abnormal: Above high normal; Units: MEQ/L; Status: F Test: CARBON DIOXIDE LEVEL; Value: 26; Range: 21-32; Units: MEQ/L; Status: F Test: ANION GAP; Value: 7; Range: 8-16; Abnormal: Below low normal; Units: MEQ/L; Status: F Test: CALCIUM LEVEL; Value: 9.2; Range: 8.8-10.2; Units: MG/DL; Status: F Test Note: ; Units are mL/min/1.73 m2 Chronic Kidney Disease Staging per NKF: Stage I & II GFR >=60 Normal to Mildly Decreased Stage III GFR 30-59 Moderately Decreased Stage IV GFR 15-29 Severely Decreased Stage V GFR <15 Very Little GFR Left ESRD GFR <15 on [employer]ICONDU[employer] DIES LOADER Lab Order: CRP; [facility] 07/07/16 15:46 Test: C REACTIVE PROTEIN QUANTITATIV; Value: 0.42; Range: 0.00-0.30; Abnormal: Above high normal; Units: MG/DL; Status: F Lab Order: LIPASE; [facility] 07/07/16 15:46 Test: LIPASE; Value: 283; Range: 73-393; Units: U/L; Status: F Lab Order: LIVER PROFILE; [facility] 07/07/16 15:46 Test: AST/SGOT; Value: 27; Range: 15-37; Units: U/L; Status: F Test: ALT/SGPT; Value: 61; Range: 12-78; Units: U/L; Status: F Test: ALKALINE PHOSPHATASE; Value: 96; Range: 45-117; Units: U/L; Status: F Test: BILIRUBIN,TOTAL; Value: 0.7; Range: 0.2-1.0; Units: MG/DL; Status: F Test: BILIRUBIN,DIRECT; Value: 0.2; Range: 0.0-0.2; Units: MG/DL; Status: F Test: TOTAL PROTEIN; Value: 7.5; Range: 6.4-8.2; Units: GM/DL; Status: F Test: ALBUMIN; Value: 4.0; Range: 3.2-5.2; Units: GM/DL; Status: F Test: ALBUMIN/GLOBULIN RATIO; Value: 1.14; Range: 1.00-1.93; Status: F Radiology Order: CT ABD & PELVIS: No Contrast Test: CT ABD & PELVIS: No Contrast REASON FOR EXAMINATION: RIGHT FLANK PAIN; CT abdomen pelvis without IV or bowel contrast:; ; Comparisons 07/06/2010.; ; The visualized lung peres are unremarkable.; ; There there are multiple cysts in the left hepatic lobe, one in the medial; segment measuring 3.5 cm (2.4 cm previously). There is a second bilobed cyst; measuring 4.6 cm (previously 2.3 cm). A third in the lateral segment measuring; 4.4 cm (previously 2.0 cm).; ; The hepatic parenchyma is otherwise homogeneous and unremarkable.; ; The gallbladder is unremarkable.; ; Pancreas is normal size. There are numerous pancreatic calcifications, as; previously, likely sequela of prior pancreatitis. There is no acute pancreatic; inflammation.; ; Spleen is normal size and homogeneous.; ; The adrenals are unremarkable.; ; There are bilateral renal cortical cysts, all approximately 1 cm in size with the; exception of a large cyst at the lower pole of the left kidney measuring 7.6 cm; (7.3 cm previously).; ; No renal collecting system calculi are identified. There are vascular; atheromatous calcifications in the right kidney.; ; There are no ureteral calculi.; ; There is no right hydroureter. There is mild left hydroureter, unchanged. 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 This is unchanged.; ; There is an infrarenal abdominal aortic aneurysm measuring 4.1 x 3.4 cm. There; is no periaortic or retroperitoneal hematoma.; ; No bowel distension. Mesentery is unremarkable.; ; ; ; Pelvis:; ; The appendix has a normal appearance. There is no ascites or adenopathy. There; are occasional diverticula in the sigmoid colon. No CT evidence of; diverticulitis.; ; Impression:; ; Ureterocele in the bladder on the left. Mild left hydroureter. No left renal; ureteral calculi.; ; There is no hydronephrosis or hydroureter on the right. There are no right renal; pelvis or ureteral calculi. There are right renal parenchymal calcifications,; likely vascular atheroma.; ; There are bilateral renal cortical cysts, largest in the lower pole left kidney.; ; There are pancreatic calcifications, likely sequela of prior pancreatitis.; ; There are hepatic cysts as described.; ; There is an infrarenal abdominal aortic aneurysm measuring 4.1 x 3.4 cm. There; is no periaortic or retroperitoneal hematoma.; ; ; Signed by; Justice Blanco MD 07/07/2016 04:18 P; Radiology Order: US Abd Limited Test: US Abd Limited REASON FOR EXAMINATION: Biliary Colic; Clinical: Biliary colic.; ; Technique: Real time ware scale ultrasound examination using curved array; transducer.; ; Findings:; The gallbladder is normal without gallstones, wall thickening, or pericholecystic; fluid. No biliary ductal dilatation is appreciated and the common bile duct; measures 4.1 mm diameter. Pancreas demonstrates scattered calcifications; consistent with chronic pancreatitis. Liver demonstrates fatty infiltration; along with three left lobe cysts measuring 3.6 cm, 4.6 cm, and 3.3 cm maximal; diameter each. Right kidney is normal in reniform shape without hydronephrosis; and demonstrates few cysts measuring up to approximately 2 cm.; ; Impression:; 1. Normal gallbladder and biliary system.; 2. Hepatic and renal cysts.; 3. Evidence for chronic pancreatitis.; ; ; Signed by; Karlos Mullen MD 07/07/2016 05:08 P; Outcome: 17:37 Discharge ordered by Provider. dt4 18:03 Discharge Assessment: patient administered narcotics - yes. Pt provided with safe jjr discharge. The following High Risk Discharge criteria are identified: None. Discharged to home ambulatory, with significant other. Condition: stable. Discharge instructions given to patient, Instructed on discharge instructions, follow up and referral plans. Demonstrated understanding of instructions. CT Study completed. Ultrasound Study completed. Property sent home with patient. 18:03 Patient left the ED. jjr Signatures: Dispatcher [employer] EDMS Minna Mukherjee, RN RN Eliana Cleaning, POINT OF CARE TECHNICIAN POINT OF CARE TECHNICIAN jam1 Patricia Feliciano RN RN zafar Holguin, Yeison hgl Bg Feliciano gr2 Alma Tyler RN RN mkMallika Good, PACrys PAJulietC dt4 Lois Paul, Reg Reg [email or web address] Julita Lewis Chart Complete MTDD
== END 2016-07-07 18:03 | disposition home or self-care (01) ==
LOC: M ED 14:43
DX: I71.4 Abdominal aortic aneurysm, without rupture (principal); N28.1 Cyst of kidney, acquired; K76.89 Other specified diseases of liver; R10.11 Right upper quadrant pain; E78.00 Pure hypercholesterolemia, unspecified; I10 Essential (primary) hypertension; E11.9 Type 2 diabetes mellitus without complications; F17.200 Nicotine dependence, unspecified, uncomplicated; Z79.82 Long term (current) use of aspirin; Z79.899 Other long term (current) drug therapy
CPT/HCPCS: 36415; 74176; 76705; 80048; 80076; 81001; 83690; 85025; 86140; 96361; 96374; 96375; 99284; J2405

== ENCOUNTER 2018-12-06 09:02 | Day surgery (SDC) | payer OTHER ==
[~2018-12-06] VITALS: Ht 177.8 cm; Wt 72.6 kg
[~2018-12-06 09:02] MED LIST: AMLO10TA5 PO; ASPI81TA26 PO; ATEN50TA2 PO; ATOR40TA75 PO; CELE1CAP4 PO; GABA-843 PO; LIDOCAINE 2% INJ 100 MG/5 ML SDV (FOR ANES.) As Ordered ONE; LISI10TA4 PO; METF500T13 PO; NS 1,000 ML IV ONE; PROPOFOL 200 MG/20 ML VIAL As Ordered ONE; VITA200021 PO
[2018-12-06] MEDS ORDERED: PROPOFOL 200 MG/20 ML VIAL As Ordered ONE (10:39)
--- NOTE | 2018-12-06 10:45 | ROOR ---
Patient Name: Shiraz Clemente Procedure Date: 12/06/2018 10:27 AM Date of : 1955 Age: 63 Room: [facility] Gender: Male Note Status: Finalized Procedure: Colonoscopy Indications: High risk colon cancer surveillance: Personal history of colonic polyps Providers: Cj Miner Jr, MD Referring MD: MABLE Barragan Requesting Provider: Medicines: Propofol per Anesthesia Complications: No immediate complications. Procedure: Pre-Anesthesia Assessment: - Prior to the procedure, a History and Physical was performed, and patient medications and allergies were reviewed. The patient is competent. The risks and benefits of the procedure and the sedation options and risks were discussed with the patient. All questions were answered and informed consent was obtained. Patient identification and proposed procedure were verified by the physician and the nurse in the pre-procedure area and in the procedure room. Mental Status Examination: alert and oriented. Airway Examination: normal oropharyngeal airway and neck mobility. Respiratory Examination: clear to auscultation. CV Examination: normal. ASA Grade Assessment: II - A patient with mild systemic disease. After reviewing the risks and benefits, the patient was deemed in satisfactory condition to undergo the procedure. The anesthesia plan was to use moderate sedation / analgesia (conscious sedation). Immediately prior to administration of medications, the patient was re-assessed for adequacy to receive sedatives. The heart rate, respiratory rate, oxygen saturations, blood pressure, adequacy of pulmonary ventilation, and response to care were monitored throughout the procedure. The physical status of the patient was re-assessed after the procedure. The Colonoscope was introduced through the anus and advanced to the cecum, identified by appendiceal orifice and ileocecal valve. The colonoscopy was performed without difficulty. The patient tolerated the procedure well. The quality of the bowel preparation was adequate. Findings: The descending colon, transverse colon, ascending colon, cecum, appendiceal orifice and ileocecal valve appeared normal. Multiple small and large-mouthed diverticula were found in the sigmoid colon. Multiple hyperplastic polyps were found in the rectum and recto-sigmoid colon. The polyps were diminutive in size. These polyps were removed with a cold snare. Resection was complete, but the polyp tissue was only partially retrieved. Impression: - The descending colon, transverse colon, ascending colon, cecum, appendiceal orifice and ileocecal valve are normal. - Diverticulosis in the sigmoid colon. - Multiple diminutive polyps in the rectum and at the recto-sigmoid colon, removed with a cold snare. Complete resection. Partial retrieval. Recommendation: - Discharge patient to home (ambulatory). - Repeat colonoscopy in 5 years for surveillance. Cj Miner MD Cj Miner Jr, MD 12/06/2018 10:45:27 AM Electronically signed by Cj Miner Jr, MD Number of Addenda: 0 Note Initiated On: 12/06/2018 10:27 AM Estimated Blood Loss: Estimated blood loss: none.
[2018-12-06 11:05] VITALS: BP 134/81
== END 2018-12-06 11:12 | disposition home or self-care (01) ==
LOC: M OPP 09:02
PROVIDERS: ATTEND Surgery
DX: Z12.11 Encounter for screening for malignant neoplasm of colon (principal); Z86.010 Personal history of colon polyps; D12.7 Benign neoplasm of rectosigmoid junction; K62.1 Rectal polyp; K57.30 Diverticulosis of large intestine without perforation or abscess without bleeding; I71.4 Abdominal aortic aneurysm, without rupture; M54.89 Other dorsalgia; I10 Essential (primary) hypertension; I25.10 Atherosclerotic heart disease of native coronary artery without angina pectoris; F17.210 Nicotine dependence, cigarettes, uncomplicated; E11.9 Type 2 diabetes mellitus without complications; E78.5 Hyperlipidemia, unspecified; R23.3 Spontaneous ecchymoses; M19.90 Unspecified osteoarthritis, unspecified site; Z79.82 Long term (current) use of aspirin; Z79.899 Other long term (current) drug therapy; Z79.84 Long term (current) use of oral hypoglycemic drugs

== ENCOUNTER 2020-02-04 07:24 | Observation (INO) | payer MEDICARE, OTHER ==
[~2020-02-04] VITALS: Ht 177.8 cm; Wt 78.8 kg
[~2020-02-04 07:24] MED LIST changes: -AMLO10TA5 PO; +AMLO1TAB25 PO; -LIDOCAINE 2% INJ 100 MG/5 ML SDV (FOR ANES.) As Ordered ONE; -NS 1,000 ML IV ONE; -PROPOFOL 200 MG/20 ML VIAL As Ordered ONE
[2020-02-04] MEDS ORDERED: LIDO5OIN19 TOP (07:33)
[2020-02-04] MEDS ORDERED: OXYC1TAB15 PO (07:33)
[2020-02-04] MEDS ORDERED: CLOP75TA2 PO (07:33)
--- NOTE | 2020-02-04 08:34 | REPVR ---
PROCEDURE INFORMATION: Exam: XR Left Shoulder Exam date and time: 02/04/2020 8:30 AM Age: 65 years old Clinical indication: Pain; Shoulder; Left; Additional info: L shoulder pain, L scapula ttp TECHNIQUE: Imaging protocol: XR Left shoulder. Views: 2 or more views. COMPARISON: No relevant prior studies available. FINDINGS: Bones/joints: No acute fracture or dislocation is identified. There is very mild acromioclavicular arthrosis. No focal lytic or blastic lesion is identified. There is no osseous erosion or cortical destruction. Soft tissues: The soft tissues appear grossly unremarkable. IMPRESSION: Very mild acromioclavicular arthrosis. Electronically signed by: Wes Curry On 02/04/2020 08:34:16 AM
[2020-02-04] MEDS ORDERED: ACETAMINOPHEN 500 MG TAB PO ONE (08:45)
[2020-02-04 09:13] LABS: HEMATOCRIT 42.5 % (42.0-52.0); HEMOGLOBIN 14.4 g/dl (13.5-17.5); MEAN CORPUSCULAR HEMOGLOBIN 32.7 pg (27.0-33.0); MEAN CORPUSCULAR HGB CONC 33.9 g/dl (32.0-36.5); MEAN CORPUSCULAR VOLUME 96.6 fl (80.0-96.0); PLATELET COUNT, AUTOMATED 130 10^3/uL (150-450); WHITE BLOOD COUNT 9.2 10^3/uL (4.0-10.0)
[2020-02-04 09:21] LABS: INR 1.05; PROTHROMBIN TIME 13.9 SECONDS (12.5-14.3)
[2020-02-04 09:22] LABS: PARTIAL THROMBOPLASTIN TIME 33.9 SECONDS (24.2-38.5)
[2020-02-04 09:32] LABS: CK-MB VALUE MASS 1.5 NG/ML (<3.6); CPK CREATINE PHOSPHOKINASE 105 U/L (39-308); MB/CK RELATIVE INDEX 1.43 (< OR =4); TROPONIN I < 0.02 NG/ML (< 0.10)
[2020-02-04] MEDS ORDERED: ISOVUE-370 76% 100ML VIAL As Ordered ONE (09:42)
[2020-02-04 09:48] LABS: ATYPICAL LYMPH 3 % (0-5); BASOPHILS 2 % (0-1); LYMPHOCYTES 4 % (16-44); MONOCYTES 10 % (0-5); NEUTROPHILS 69 % (28-66); PLATELET ESTIMATE DECREASED (NORMAL)
[2020-02-04 09:49] LABS: ANISOCYTOSIS 1+
--- NOTE | 2020-02-04 10:34 | REPVR ---
PROCEDURE INFORMATION: Exam: CT Angiography Chest With Contrast Exam date and time: 02/04/2020 10:03 AM Age: 65 years old Clinical indication: Chest pain; Additional info: L shoulder pain, 4 weeks post op, pvd, R/O pe TECHNIQUE: Imaging protocol: Computed tomographic angiography of the chest with intravenous contrast. 3D rendering (Not supervised by radiologist): MIP and/or 3D reconstructed images were created by the technologist. Radiation optimization: All CT scans at this facility use at least one of these dose optimization techniques: automated exposure control; mA and/or kV adjustment per patient size (includes targeted exams where dose is matched to clinical indication); or iterative reconstruction. Contrast material: ISOVUE 370; Contrast volume: 75 ml; Contrast route: INTRAVENOUS (IV); COMPARISON: No relevant prior studies available. FINDINGS: Pulmonary arteries: The left pulmonary artery is enlarged, measuring up to 3.5 cm in caliber. No pulmonary embolus is identified. Aorta: The thoracic aorta is nonaneurysmal. Atherosclerotic vascular calcifications are noted. Lungs: Mild dependent atelectasis and scattered scarring is present bilaterally. There are also mild patchy ground-glass opacities in the left more than right upper lobes, which could be infectious or inflammatory. Pleural space: Unremarkable. No pneumothorax. No pleural effusion. Heart: Coronary artery calcifications are noted. No significant pericardial effusion. Lymph nodes: Unremarkable. No enlarged lymph nodes. Liver: There are multiple hepatic cysts measuring up to 5.8 cm. Pancreas: Multiple small calcifications in the partially included pancreas suggest chronic pancreatitis. Kidneys and ureters: The partially included kidneys contain cysts measuring up to at least 6.4 cm. Bones/joints: Degenerative changes involve the spine. No acute fracture of the visualized skeleton is identified. Soft tissues: Unremarkable. IMPRESSION: 1. No pulmonary embolus identified. 2. Enlargement of the left pulmonary artery, as may be seen with pulmonic valve stenosis. Consider dedicated evaluation. 3. Mild patchy ground-glass opacities in the left more than right upper lobes, could be infectious or inflammatory. Correlate clinically and follow-up. 4. Coronary artery calcifications. 5. Other nonurgent findings as described. Electronically signed by: Wes Curry On 02/04/2020 10:33:52 AM
--- NOTE | 2020-02-04 10:56 | ED PDOC ---
Post-Departure Follow-Up dr pepe dillard faxed formal repot of cta chest for fu Kary Leigh MD Feb 04, 2020 10:56
--- NOTE | 2020-02-04 11:01 | REPVR ---
PROCEDURE INFORMATION: Exam: CT Cervical Spine Without Contrast Exam date and time: 02/04/2020 10:03 AM Age: 65 years old Clinical indication: Neck pain; Additional info: Lue pain with neck rom TECHNIQUE: Imaging protocol: Computed tomography images of the cervical spine without contrast. Radiation optimization: All CT scans at this facility use at least one of these dose optimization techniques: automated exposure control; mA and/or kV adjustment per patient size (includes targeted exams where dose is matched to clinical indication); or iterative reconstruction. COMPARISON: No relevant prior studies available. FINDINGS: Vertebrae: Vertebral body heights are intact. There are minimal, grade 1 spondylolisthesis ease at C2-C3, C3-C4 and C7-T1. Alignment is otherwise maintained. Incomplete lucency through the superior articular facet of T1 has sclerotic margins and could relate to remote injury or could be degenerative. No acute fracture is identified. Discs/Spinal canal/Neural foramina: There is multilevel spondylosis with variable osteophytic encroachment of several neural foramina. CT is not optimal for the evaluation of the discs, neural foramina or spinal canal or cord. There is probably spinal stenosis at C6-C7. Other bones/joints: The bones appear osteopenic. Soft tissues: The prevertebral soft tissues are not significantly swollen. There is mild asymmetric soft tissue swelling in the left supraclavicular region. Pleural space: No apical pneumothorax is identified. Vasculature: Atherosclerotic vascular calcifications are noted. IMPRESSION: 1. Spondylosis with probable spinal stenosis at C6-C7. The discs and integrity of the cord could be better evaluated by means of MRI as clinically appropriate. 2. Mild asymmetric soft tissue swelling in the left supraclavicular region, significance uncertain. Suggest Doppler exam to evaluate for deep venous thrombus. In the absence of deep venous thrombus, would further evaluate the neck, with contrast-enhanced neck CT, neck CT angiogram and/or neck MRI. 3. Apparent osteopenia. COMMENTS: See separate chest CT report for pulmonary findings. Electronically signed by: Wes Curry On 02/04/2020 11:00:42 AM
--- NOTE | 2020-02-04 11:56 | REPVR ---
PROCEDURE INFORMATION: Exam: US Duplex Left Upper Extremity Veins, Limited Exam date and time: 02/04/2020 11:53 AM Age: 65 years old Clinical indication: Pain; Arm, upper; Left; Additional info: R/O dvt in L neck TECHNIQUE: Imaging protocol: Real-time Duplex ultrasound of the Left Upper Extremity with 2-D ware scale, color Doppler flow and spectral waveform analysis with image documentation. Limited exam focused on the left upper extremity veins. COMPARISON: CT Spine,cervical w/o contrast 02/04/2020 9:52:17 AM FINDINGS: Left deep veins: Unremarkable. Axillary and brachial veins are patent throughout without thrombus. Normal Doppler waveforms. Normal compressibility and/or augmentation response. Visualized internal jugular and subclavian veins are patent. Left superficial veins: Unremarkable. Visualized cephalic and basilic veins are patent without thrombus. Soft tissues: Unremarkable. IMPRESSION: No deep venous thrombus demonstrated in the left upper extremity. COMMENTS: As no deep venous thrombus is identified to account for the soft tissue swelling in the neck on cervical spine CT of the same day, further evaluation with contrast-enhanced neck CT, neck CT angiogram and/or neck MRI is recommended. Electronically signed by: Wes Curry On 02/04/2020 11:56:20 AM
--- NOTE | 2020-02-04 15:07 | REPVR ---
PROCEDURE INFORMATION: Exam: MR Angiography Neck Without Contrast Exam date and time: 02/04/2020 2:48 PM Age: 65 years old Clinical indication: Pain; Additional info: And mrv, R/O venous pathology TECHNIQUE: Imaging protocol: Magnetic resonance angiography of the neck without contrast. 3D rendering (Not supervised by radiologist): MIP and/or 3D reconstructed images were created by the technologist. COMPARISON: CT Spine,cervical w/o contrast 02/04/2020 9:52 AM FINDINGS: Right common carotid artery: No stenosis. No dissection or occlusion. Right internal carotid artery: There is less than 10% stenosis of the proximal right internal carotid artery. Right external carotid artery: No stenosis. No dissection or occlusion of the origin. 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 Left common carotid artery: No stenosis. No dissection or occlusion. Left internal carotid artery: There is less than 25% stenosis of the proximal left internal carotid artery. Left external carotid artery: No stenosis. No dissection or occlusion of the origin. Left vertebral artery: No stenosis. No dissection or occlusion. IMPRESSION: 1. No acute abnormality. 2. Chronic findings as discussed above. REFERENCES: NASCET CRITERIA. The degree of internal carotid artery stenosis is based on NASCET criteria. Normal is no stenosis. Mild is less than 50% stenosis. Moderate is 50-69% stenosis. Severe is 70% to 99% stenosis. Total occlusion is no detectable patent lumen. Electronically signed by: Dany Katz On 02/04/2020 15:06:54 PM
--- NOTE | 2020-02-04 15:37 | REPVR ---
PROCEDURE INFORMATION: Exam: MR Neck Without Contrast Exam date and time: 02/04/2020 2:48 PM Age: 65 years old Clinical indication: Other: Am pain; Additional info: Lue pain. Sts L supraclavicular region TECHNIQUE: Imaging protocol: MR images of the neck without intravenous contrast. COMPARISON: CT Spine,cervical w/o contrast 02/04/2020 9:52 AM FINDINGS: Oropharynx: Unremarkable. Hypopharynx: Unremarkable. Larynx: Unremarkable. Submandibular glands: Unremarkable. Retropharyngeal space: Unremarkable. Vasculature: Flow voids are apparent. See MRA. Lymph nodes: No lymphadenopathy. Soft tissues: As below. Bones/joints: Marked degeneration in the cervical spine. The inflammation also appears to involve the left C7 facet joint and possibly the left neural foramen. Lung apices: On the T2 weighted SPAIR sequence there appears to be increased intensity in the left supraclavicular fossa and within the pleura of the left lung apex. This is not well assessed on the remainder of the images due to the lack of intravenous contrast although some associated soft tissue stranding is seen within the fat on the T1 weighted sequences. No focal mass is identified. IMPRESSION: Limited noncontrast examination with probable infectious or noninfectious inflammatory process left supraclavicular fossa and possibly involving the left C7-T1 facet joint and neural foramen. This could be associated with lymphatic obstruction as well and appears to involve the pleura at the left lung apex. Contrast enhanced neck CT scan is recommended for further evaluation. Electronically signed by: Bharti Simon On 02/04/2020 15:37:45 PM
[2020-02-04] MEDS: GABAPENTIN 400 MG CAP PO SCH ×2 (16:00→20:34)
[2020-02-04] MEDS ORDERED: ANEXSIA, NORCO 7.5MG/325MG TABLET(HYDROCODONE/APAP) PO ONE (16:00)
[2020-02-04] MEDS ORDERED: GABA-845 PO (16:34)
[2020-02-04] MEDS ORDERED: D3 22000 PO (16:34)
[2020-02-04] MEDS ORDERED: BUPR150T3 PO (16:34)
[2020-02-04] MEDS ORDERED: KETOROLAC 30 MG/ML 1ML VIAL IV ONE (16:45)
[2020-02-04] MEDS ORDERED: LIDOCAINE 5% OINT 30 GM TOP PRN (17:00)
[2020-02-04] MEDS: NS 1,000 ML IV SCH (17:19)
--- NOTE | 2020-02-04 18:13 | HPEPDOC ---
General Date of Admission Feb 04, 2020 at 07:25 Date of Service: Feb 04, 2020 Attending Physician: WADE SAUNDERS DO Chief Complaint The patient is a 65-year-old male admitted with a reason for visit of Intractible Pain Left Shoulder Pain. Source: Patient Exam Limitations: No limitations History of Present Illness Mr. Clemente is a 65 year old male history of HLD, HTN, and DM who is here for severe, worsening pain of the left shoulder. On Monday morning, he was woken up by left shoulder pain around 4 to 5 AM. On that day he was able to move his arm. He took his regular Percocet and it brought temporary relief. It returned on and it was worsening. Movement made the pain worse. Today, it was severe, sharp 10/10 pain that feels like it radiates everywhere. Worse with movement and applying pressure to the site. Better with pain medication. He has had CT chest with angio, MRI face, MRA neck, and ultrasound upper extremity. Unfortunately, the imaging was not focused on the left supraclavicular fossa where there is swelling which may be inflammation vs infection. There is also left apical lung thickening. When I saw him, he was in distress and in pain. AROM and PROM restricted secondary to pain. The shoulder did not hurt, but it was more in the scapula. The left scapular was more swollen than the right. Left boggy. I spoke with the radiologist about the imaging. He recommended either MRI of the left sh oulder so he could see the left supraclavicular fossa or CT neck with contrast. Since he had contrast from CT angio, I ordered the MRI left shoulder. Home Medications Scheduled Amlodipine Besylate (Amlodipine Besylate) 10 Mg Tablet, 10 MG PO DAILY, (Reported) Aspirin (Aspirin EC) 81 Mg Tablet.dr, 81 MG PO DAILY, (Reported) Atenolol (Atenolol) 50 Mg Tablet, 50 MG PO QHS, (Reported) Atorvastatin Calcium (Atorvastatin Calcium) 40 Mg Tablet, 40 MG PO QHS, (Reported) Bupropion Hcl (Bupropion Xl) 150 Mg Tab.er.24h, 150 MG PO QHS, (Reported) Celecoxib (Celebrex) 200 Mg Capsule, 200 MG PO BID, (Reported) Cholecalciferol (Vitamin D3) (Vitamin D3) 50 Mcg Tablet, 2,000 UNITS PO DAILY, (Reported) Clopidogrel Bisulfate (Clopidogrel) 75 Mg Tablet, 75 MG PO DAILY, (Reported) TAKES AT LUNCHTIME Gabapentin (Gabapentin) 400 Mg Capsule, 400 MG PO TID, (Reported) Lisinopril (Lisinopril) 10 Mg Tablet, 10 MG PO DAILY, (Reported) Metformin HCl (Metformin HCl) 500 Mg Tablet, 500 MG PO QHS, (Reported) Oxycodone HCl/Acetaminophen (Oxycodon-Acetaminophen 7.5-325) 1 Each Tablet, 1 TAB PO BID, (Reported) Scheduled PRN Lidocaine (Lidocaine) 120 Gm Oint...g., 1 APLCT TOP TID PRN for PAIN, (Reported) APPLIES TO LEFT FOOT Allergies Coded Allergies: No Known Allergies (Unverified , 11/28/18) Past Medical History Medical History 1. HLD 2. HTN 3. Low back pain 4. DM 5. PVD Surgical History 1. Left leg stent 2. Left knee surgery x2 Family History Father had a history of multiple myeloma, at the age of 64. Mother had a history of heart disease, at the age of 40 Social History * Smoker: current smoker (he tells me that he smokes for most of his life does not know how long he smoked for, smokes about 1 pack per day) Alcohol: Denies Drugs: denies A-FIB/CHADSVASC A-FIB History Current/History of A-Fib/PAF?: No Review of Systems Constitutional: Denies: Chills, Fever Eyes: Denies: Vision change ENT: Denies: Head Aches Skin: Denies: Rash Pulmonary: Denies: Dyspnea, Cough Cardiovascular: Denies: Chest Pain Gastrointestinal: Denies: Nausea, Vomiting, Abdominal Pain, Diarrhea Genitourinary: Denies: Dysuria Musculoskeletal: Reports: Shoulder Pain Neurological: Denies: Weakness Psych: Reports: Mood Normal Physical Examination General Exam: Positive: Alert, Cooperative, Moderate Distress Eye Exam: Positive: EOMI; Negative: Sclera icteric ENT Exam: Positive: Atraumatic, Mucous membr. moist/pink Neck Exam: Positive: Supple Chest Exam: Positive: Clear to auscultation; Negative: Rales, Rhonchi, Wheezing Heart Exam: Positive: Rate Normal, Regular Rhythm Abdomen Exam: Positive: Normal bowel sounds, Soft; Negative: Tenderness Extremity Exam: Negative: Edema, Swelling Neuro Exam: Positive: Normal Gait, Normal Speech, Cranial Nerves 3-12 NL Psych Exam: Positive: Mental status NL, Mood NL, Oriented x 3 Vital Signs Vital Signs Date Time Temp Pulse Resp B/P (MAP) Pulse Ox O2 Delivery O2 Flow Rate FiO2 02/04/20 16:59 18 Room Air 02/04/20 11:58 98.6 72 128/67 (87) 96 Laboratory Data Labs 24H Laboratory Tests 2 02/04/20 08:56: Neutrophils (%) (Auto) , Nucleated Red Blood Cells % (auto) 0.0, Neutrophils 69H, Band Neutrophils 12H, Lymphocytes (Manual) 4L, Monocytes (Manual) 10H, Basophils (Manual) 2H, Atypical Lymphocytes 3, Anisocytosis 1+, Macrocytosis 1+, Platelet Estimate DECREASED, Prothrombin Time 13.9, Prothromb Time International Ratio 1.05, Activated Partial Thromboplast Time 33.9, Total Creatine Kinase 105, Creatine Kinase MB 1.5, Creatine Kinase MB Relative Index 1.43, Troponin I < 0.02 CBC/BMP Laboratory Tests 02/04/20 08:56 Assessment/Plan Mr. Clemente is a 65-year-old male history of diabetes, hypertension, peripheral vascular who comes to [facility] for worsening and intractable left shoulder pain. While in the ED, they ordered a CT angiogram, MRI of the face. MR of the neck and ultrasound of the upper extremities. It demonstrated there is something in the left superficial clavicular fossa but the imaging had messed area. Recommendation from the MRI of the face requested a CT of the neck with contrast. But since he had a CT angiogram, we will have to wait for 24 hours. I spoke with the radiologist who said that we could also do MR of the left shoulder. I will order the MRI of the left shoulder. Until then, we will control the pain. Plan / VTE VTE Prophylaxis Ordered?: Yes Plan Plan 1. Left shoulder pain/swelling of the supraclavicular fossa. Imaging ordered missed the supraclavicular fossa. Image is suggestive of either inflammation versus infection in the supraclavicular fossa Spoke with radiologist, recommended that we do MR of the left shoulder. We will try topical NSAIDs since there is inflammation. Pending BMP for oral anti-inflammatories. 2. Chronic low back pain. Chronic low back pain. Normal controlled with Percocet 7.5 mg twice a day. We will use [place] 7.5 mg twice a day since we don't have Percocet 7.5 mg. We will continue gabapentin 3. Hypertension. Blood pressure controlled. We'll continue lisinopril, atenolol and amlodipine. 4. Peripheral vascular disease. Recently had stents placed in his left leg. We will continue aspirin and Plavix. Also, continue atorvastatin 5. Dyslipidemia. Continue atorvastatin. 6. DVT prophylaxis. Pending results from BMP for now will put on heparin 3 times a day. WADE SAUNDERS. DO Feb 04, 2020 17:16
[2020-02-04 18:14] LABS: ALBUMIN 2.8 GM/DL (3.2-5.2); ALT/SGPT 80 U/L (12-78); BILIRUBIN,TOTAL 0.7 MG/DL (0.2-1.0); BLOOD UREA NITROGEN 10 MG/DL (7-18); CALCIUM LEVEL 9.4 MG/DL (8.8-10.2); CARBON DIOXIDE LEVEL 25 MEQ/L (21-32); CHLORIDE LEVEL 103 MEQ/L (98-107); CREATININE FOR GFR 0.63 MG/DL (0.70-1.30); GLOMERULAR FILTRATION RATE > 60.0 (>49); GLUCOSE, FASTING 99 MG/DL (70-100); POTASSIUM SERUM 4.3 MEQ/L (3.5-5.1); SODIUM LEVEL 135 MEQ/L (136-145); TOTAL PROTEIN 6.8 GM/DL (6.4-8.2)
[2020-02-04] MEDS ORDERED: GLUCOSE 4GM CHEW TABLET PO PRN (19:00)
[2020-02-04] MEDS ORDERED: GLUCAGON INJ 1MG VIAL SC PRN (19:00)
[2020-02-04] MEDS ORDERED: DEXTROSE 50% 50 ML SYRINGE IV PRN (19:00)
[2020-02-04 19:06] VITALS: BP 127/68
[2020-02-04] MEDS: HEPARIN SOD (PORCINE) 5000UNITS/ML 1ML VIAL/SYRINGE SC SCH (20:32)
[2020-02-04] MEDS: ANEXSIA, NORCO 7.5MG/325MG TABLET(HYDROCODONE/APAP) PO SCH (20:35)
[2020-02-04] MEDS ORDERED: PERCOCET 5MG/325MG TAB PO SCH (21:00)
[2020-02-04] MEDS ORDERED: ATORVASTATIN 20 MG TAB PO SCH (21:00)
[2020-02-04] MEDS ORDERED: buPROPion **XL** TABLET 150MG (WELLBUTRIN XL) PO SCH (21:00)
[2020-02-04] MEDS ORDERED: HumaLOG INSULIN (NovoLOG) PER UNIT SC SCH (21:00)
[2020-02-04] MEDS ORDERED: atenoloL 50 MG TAB PO SCH (21:00)
[2020-02-04 22:00] VITALS: BP 120/66
[2020-02-05] MEDS: DICLOFENAC EPOLAMINE 1.3 % PATCH TOP SCH ×2 (00:40→08:32)
[2020-02-05] MEDS: KETOROLAC TROMETHAMINE 10 MG TAB PO PRN ×3 (00:41→16:30)
[2020-02-05 06:00] VITALS: BP 133/73
[2020-02-05] MEDS: NS 1,000 ML IV SCH (06:23)
[2020-02-05] MEDS: HEPARIN SOD (PORCINE) 5000UNITS/ML 1ML VIAL/SYRINGE SC SCH ×2 (06:24→13:51)
[2020-02-05 07:03] LABS: HEMOGLOBIN 13.5 g/dl (13.5-17.5); MEAN CORPUSCULAR HEMOGLOBIN 32.7 pg (27.0-33.0); MEAN CORPUSCULAR HGB CONC 33.8 g/dl (32.0-36.5); MEAN CORPUSCULAR VOLUME 96.9 fl (80.0-96.0); RED BLOOD COUNT 4.13 10^6/uL (4.30-6.10)
[2020-02-05 07:06] LABS: PLATELET COUNT, AUTOMATED 91 10^3/uL (150-450)
[2020-02-05 07:16] LABS: GLUCOSE, FASTING 124 MG/DL (70-100)
[2020-02-05 07:17] LABS: BLOOD UREA NITROGEN 13 MG/DL (7-18); CALCIUM LEVEL 8.8 MG/DL (8.8-10.2); CARBON DIOXIDE LEVEL 25 MEQ/L (21-32); CHLORIDE LEVEL 104 MEQ/L (98-107); CREATININE FOR GFR 0.58 MG/DL (0.70-1.30); GLOMERULAR FILTRATION RATE > 60.0 (>49); POTASSIUM SERUM 4.2 MEQ/L (3.5-5.1); SODIUM LEVEL 135 MEQ/L (136-145)
[2020-02-05] MEDS: HumaLOG INSULIN (NovoLOG) PER UNIT SC SCH ×2 (07:30→11:37)
[2020-02-05 08:18] VITALS: BP 133/73
[2020-02-05] MEDS: GABAPENTIN 400 MG CAP PO SCH ×2 (08:18→15:35)
[2020-02-05] MEDS: ANEXSIA, NORCO 7.5MG/325MG TABLET(HYDROCODONE/APAP) PO SCH (08:19)
[2020-02-05] MEDS ORDERED: ASPIRIN 81 MG ENTERIC TAB PO SCH (09:00)
[2020-02-05] MEDS ORDERED: CLOPIDOGREL 75 MG TAB PO SCH (09:00)
[2020-02-05] MEDS ORDERED: lisinopriL 10 MG TAB PO SCH (09:00)
[2020-02-05] MEDS ORDERED: traMADol 50 MG TAB PO SCH ×2 (09:00→14:00)
[2020-02-05] MEDS ORDERED: amLODIPine 10 MG TAB PO SCH (09:00)
[2020-02-05] MEDS ORDERED: ISOVUE-370 76% 100ML VIAL As Ordered ONE (10:21)
[2020-02-05] MEDS ORDERED: DOCUSATE SODIUM 100 MG CAP PO ONE (14:30)
[2020-02-05] MEDS ORDERED: KETO10TAB PO (15:27)
[2020-02-05] MEDS ORDERED: DICL1PAT6 TOP (15:27)
[2020-02-05] MEDS ORDERED: TRAM50TA2 PO (15:27)
--- NOTE | 2020-02-05 21:01 | DS.PDOC ---
Discharge Summary General Date of Admission Feb 04, 2020 at 07:25 Date of Discharge Feb 05, 2020 Attending Physician: WADE SAUNDERS DO Discharge Summary PROCEDURES PERFORMED DURING STAY: None ADMITTING DIAGNOSES: 1. Left shoulder pain/swelling of the supraclavicular fossa/intractable pain 2. Chronic low back pain 3. Hypertension 4. Peripheral vascular disease 5. Dyslipidemia DISCHARGE DIAGNOSES: 1. Left shoulder pain/swelling of the supraclavicular fossa/intractable pain 2. Chronic low back pain 3. Hypertension 4. Peripheral vascular disease 5. Dyslipidemia COMPLICATIONS/CHIEF COMPLAINT: Intractible Pain Left Shoulder Pain. HISTORY OF PRESENT ILLNESS: Mr. Clemente is a 65 year old male history of HLD, HTN, and DM who is here for severe, worsening pain of the left shoulder. On Monday morning, he was woken up by left shoulder pain around 4 to 5 AM. On that day he was able to move his arm. He took his regular Percocet and it brought temporary relief. It returned on Monday and it was worsening. Movement made the pain worse. Today, it was severe, sharp 10/10 pain that feels like it radiates everywhere. Worse with movement and applying pressure to the site. Better with p ain medication. He has had CT chest with angio, MRI face, MRA neck, and ultrasound upper extremity. Unfortunately, the imaging was not focused on the left supraclavicular fossa where there is swelling which may be inflammation vs infection. There is also left apical lung thickening. When I saw him, he was in distress and in pain. AROM and PROM restricted secondary to pain. The shoulder did not hurt, but it was more in the scapula. The left scapular was more swollen than the right. Left boggy. I spoke with the radiologist about the imaging. He recommended either MRI of the left shoulder so he could see the left supraclavicular fossa or CT neck with contrast. Since he had contrast from CT angio, I ordered the MRI left shoulder. HOSPITAL COURSE: Later that night I got called from MRI. They said that I would not get any additional information with the MRI of the left shoulder if I was looking for a left supraclavicular fossa. They recommended the CT neck with contrast. I scheduled the imaging for tomorrow morning. That night he needed PO ketorolac. The PO ketorolac did help with his pain. This morning I reached out to pain management. They recommended tramadol 100 mg 3 times a day since he was not opiate chiqui. After obtaining the CT and when to go speak with the radiologist. He was not impressed with imaging. Unlikely infectious as patient does not have any systemic signs of infectious disease. No leukocytosis, no fever. Left scapula does not appear to have cellulitis. I also ran into orthopedic surgery who saw the patient. He said that the patient will follow-up with him outpatient. Physical therapy and occupational therapy saw the patient and recommended outpatient therapy. I spoke to the patient about his pain regimen which included his regular doses of Percocet. I did on 3 times a day tramadol, as needed ketorolac, and a lidocaine patch. I also recommended that he seek out physical therapy or occupational therapy for his left shoulder. Patient was agreeable to plan. He denied any fever or chills, lightheadedness, chest pain, dyspnea, abdominal pain, or dysuria. He felt ready for home and subsequently discharged. DISCHARGE MEDICATIONS: Please see below. ALLERGIES: Please see below. PHYSICAL EXAMINATION ON DISCHARGE: VITAL SIGNS: Please see below. GENERAL: Comfortable, in no apparent distress. HEENT: Head normocephalic/atraumatic, EOMI, sclera clear. NECK: Supple, no JVD. RESPIRATORY: Lungs clear to auscultation bilaterally, no rales, wheeze or rhonchi. CARDIOVASCULAR: Regular rate and rhythm. ABDOMEN: Soft, nontender, no guarding or rebound tenderness. Normal bowel sounds. MUSCLE SKELETAL: Still has tenderness on the left scapula NEUROLOGICAL: CN 312 grossly intact, no focal deficits noted. PSYCHOLOGICAL: Normal mood and affect LABORATORY DATA: Please see below. IMAGING: CT NECK WITH CONTRAST: Official report pending FACE MRI: Limited noncontrast examination with probable infectious or noninfectious inflammatory process left supraclavicular fossa and possibly involving the left C7-T1 facet joint and neural foramen. This could be associated with lymphatic obstruction as well and appears to involve the pleura at the left lung apex. Contrast enhanced neck CT scan is recommended for further evaluation. CT cervical spine without contrast: 1. Spondylosis with probable spinal stenosis at C6-C7. The discs and integrity of the cord could be better evaluated by means of MRI as clinically appropriate. 2. Mild asymmetric soft tissue swelling in the left supraclavicular region, significance uncertain. Suggest Doppler exam to evaluate for deep venous thrombus. In the absence of deep venous thrombus, would further evaluate the neck, with contrast-enhanced neck CT, neck CT angiogram and/or neck MRI. 3. Apparent osteopenia. Ultrasound duplex left upper extremity veins: As no deep venous thrombus is identified to account for the soft tissue swelling in the neck on cervical spine CT of the same day, further evaluation with contrast-enhanced neck CT, neck CT angiogram and/or neck MRI is recommended. X-ray left shoulder: Very mild acromioclavicular arthrosis PROGNOSIS: Stable ACTIVITY: As tolerated, please work with physical therapy or occupational therapy. DIET: As tolerated DISCHARGE PLAN: Home DISPOSITION: 01 Home, Self-Care. DISCHARGE INSTRUCTIONS: 1. Please take Percocet at 8 AM and 8 PM. Take tramadol at 9 AM, 4 PM, 10 PM. Another option would be to take Percocet at 9 AM and 9 PM and tramadol at 9 AM, 4 PM, 9 PM. 2. Take ketorolac every 6 hours as needed. Maximum daily dose 40 mg 3. Apply lidocaine patch to area of pain 4. See physical therapy or occupational therapy 5. Follow-up with orthopedic surgery in 2-3 weeks 6. Follow-up with her PCP within a week DISCHARGE CONDITION: Stable. Total time spent on discharge planning, discharge summary, and med rec onciliation 55 minutes. Vital Signs/I&Os Vital Signs Date Time Temp Pulse Resp B/P (MAP) Pulse Ox O2 Delivery O2 Flow Rate FiO2 02/05/20 13:52 16 02/05/20 08:18 133/73 02/05/20 08:18 78 02/05/20 06:00 98.2 93 Room Air I&O- Last 24 Hours up to 6 AM 02/05/20 06:00 Intake Total 660 ml Output Total 400 ml Balance 260 ml Laboratory Data Labs 24H Laboratory Tests 2 02/05/20 06:35: Nucleated Red Blood Cells % (auto) 0.0, Immature Platelet Fraction 2.5, Anion Gap 6L, Glomerular Filtration Rate > 60.0, Calcium Level 8.8 02/05/20 11:29: Bedside Glucose (Misc Panel) 177H 02/05/20 15:29: Lab Scanned Report Miscellaneous Lab CBC/BMP Laboratory Tests 02/05/20 06:35 FSBS Laboratory Tests Test 9/23/20 11:29 Range/Units Bedside Glucose (Misc Panel) 177 80-115 MG/DL Discharge Medications Scheduled Amlodipine Besylate (Amlodipine Besylate) 10 Mg Tablet, 10 MG PO DAILY, (Reported) Aspirin (Aspirin EC) 81 Mg Tablet.dr, 81 MG PO DAILY, (Reported) Atenolol (Atenolol) 50 Mg Tablet, 50 MG PO QHS, (Reported) Atorvastatin Calcium (Atorvastatin Calcium) 40 Mg Tablet, 40 MG PO QHS, (Reported) Bupropion Hcl (Bupropion Xl) 150 Mg Tab.er.24h, 150 MG PO QHS, (Reported) Cholecalciferol (Vitamin D3) (Vitamin D3) 50 Mcg Tablet, 2,000 UNITS PO DAILY, (Reported) Clopidogrel Bisulfate (Clopidogrel) 75 Mg Tablet, 75 MG PO DAILY, (Reported) TAKES AT LUNCHTIME Diclofenac Epolamine (Diclofenac Epolamine) 1 Each Patch.td12, 1 PATCH TOP Q12H Gabapentin (Gabapentin) 400 Mg Capsule, 400 MG PO TID, (Reported) Lisinopril (Lisinopril) 10 Mg Tablet, 10 MG PO DAILY, (Reported) Metformin HCl (Metformin HCl) 500 Mg Tablet, 500 MG PO QHS, (Reported) Oxycodone HCl/Acetaminophen (Oxycodon-Acetaminophen 7.5-325) 1 Each Tablet, 1 TAB PO BID, (Reported) Tramadol HCl (Tramadol HCl) 50 Mg Tablet, 100 MG PO Q8H Scheduled PRN Ketorolac Tromethamine (Ketorolac Tromethamine) 10 Mg Tablet, 10 MG PO Q6HP PRN for PAIN Lidocaine (Lidocaine) 120 Gm Oint...g., 1 APLCT TOP TID PRN for PAIN, (Reported) APPLIES TO LEFT FOOT Allergies Coded Allergies: No Known Allergies (Unverified , 11/28/18) WADE SAUNDERS DO Feb 05, 2020 21:01
--- NOTE | 2020-02-07 14:32 | REP ---
SOFT TISSUE CT STUDY OF THE NECK WITH INTRAVENOUS (IV) CONTRAST HISTORY: Left supraclavicular fossa swelling. COMPARISON: Made with imaging from chest CT study 02/04/2020. CT CONTRAST DOSE: 75 mL of intravenous 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 The patient is edentulous. There are osteoarthritic changes in the cervical spine facets. On bone window settings, axial and MPR images confirm the presence of degenerative spondylosis in the cervical spine particularly in the cervical facet joints as seen on the stone crusher operator few. No intraorbital abnormality is seen. The visualized intracranial structures are unremarkable except for some vascular calcification at the skull base. The visualized paranasal sinuses are essentially clear. There are small mucous retention cysts one in each maxillary sinus. There is vascular calcification in the proximal subclavian arteries bilaterally, as well as in the left vertebral artery. The left vertebral artery is quite a bit larger than the right, but both are patent. Vascular calcification is noted in the carotid bifurcations and proximal internal carotid arteries (ICAs) on both sides. There is approximately 50% narrowing suspected in the proximal internal carotid artery (ICA) on the left. The internal jugular and external jugular veins are somewhat prominent, but patent and there is no evidence of central or mediastinal venous obstruction. Thyroid lobes are normal and symmetric. Parotid and submandibular glands are symmetric and unremarkable. There are tonsillar crypt calcifications bilaterally. No tonsillar or peritonsillar mass is seen. The tongue and floor of mouth structures are unremarkable. There is no evidence of suprahyoid or infrahyoid adenopathy. No supraclavicular mass lesion is visible. The subclavian arteries are slightly tortuous. No aneurysm is seen. IMPRESSION: No evidence of mass or adenopathy. Vascular calcification. MTDD
== END 2020-02-05 16:50 | disposition home or self-care (01) ==
LOC: M ED 07:24 → M ED INP 07:25 → M MS5PR 19:03
PROVIDERS: ADMIT Internal Medicine; ATTEND Internal Medicine
DX: M25.512 Pain in left shoulder (principal); M25.412 Effusion, left shoulder; G89.29 Other chronic pain; M85.812 Other specified disorders of bone density and structure, left shoulder; M47.812 Spondylosis without myelopathy or radiculopathy, cervical region; M19.012 Primary osteoarthritis, left shoulder; I65.22 Occlusion and stenosis of left carotid artery; M54.2 Cervicalgia; I10 Essential (primary) hypertension; I73.9 Peripheral vascular disease, unspecified; E78.5 Hyperlipidemia, unspecified; E11.51 Type 2 diabetes mellitus with diabetic peripheral angiopathy without gangrene; Z79.899 Other long term (current) drug therapy; Z79.82 Long term (current) use of aspirin; Z79.02 Long term (current) use of antithrombotics/antiplatelets; Z79.84 Long term (current) use of oral hypoglycemic drugs; Z79.891 Long term (current) use of opiate analgesic; F17.210 Nicotine dependence, cigarettes, uncomplicated; Z95.820 Peripheral vascular angioplasty status with implants and grafts
CPT/HCPCS: 36415; 70491; 70540; 70547; 71275; 72125; 73030; 80047; 80048; 80053; 82550; 82553; 84484; 85025; 85027; 85049; 85055; 85610; 85730; 93971; 96372; 96374; 97161; 97165; 99284; G0378; J1644; J1885; Q9967